=== PATIENT | female | born 1950 | race Caucasian/White ===

== ENCOUNTER 2016-11-26 11:12 | Inpatient (IN) | payer MEDICARE, BC ==
[~2016-11-26] VITALS: Ht 170.2 cm; Wt 85.0 kg
[2016-11-26] VITALS (9 sets, daily range): BP systolic 123–192; BP diastolic 59–93; PULSE 58–89; RESP 12–22; TEMP 97.7–98; O2SAT 95–98
[2016-11-26] MEDS ORDERED: DICL1CAP4 PO (11:45)
[2016-11-26] MEDS ORDERED: GABA300C5 PO (11:45)
[2016-11-26] MEDS ORDERED: LEVO112T2 PO (11:45)
[2016-11-26] MEDS ORDERED: LEVE500 PO (11:45)
[2016-11-26] MEDS ORDERED: LORazepam 2 MG/ML VIAL IV PUSH ONE (12:00)
[2016-11-26] MEDS ORDERED: SODIUM CHLORIDE 0.9% FLUSH 5 ML FLUSH IVF PRN (12:00)
[2016-11-26] MEDS ORDERED: SODIUM CHLOR 0.9% 1000 ML INJ 1,000 ML IV ONE (12:00)
[2016-11-26 12:13] LABS: AUTOMATED NEUTROPHIL # 3.2 TH/MM3 (1.8-7.7); BASOPHIL % 0.6 % (0.0-2.0); EOSINOPHIL # 0.1 TH/MM3 (0-0.4); EOSINOPHIL % 1.6 % (0.0-4.0); HEMATOCRIT 42.1 % (35.0-46.0); HEMO FLAGS DIFF FINAL; LYMPH % 32.3 % (9.0-44.0); LYMPHOCYTE # 1.8 TH/MM3 (1.0-4.8); MEAN CELL VOLUME 89.1 FL (80.0-100.0); MEAN CORPUSCULAR HEMOGLOBIN 30.7 PG (27.0-34.0); MEAN CORPUSCULAR HGB CONC 34.5 % (32.0-36.0); MONO % 7.9 % (0.0-8.0); NEUT % 57.6 % (16.0-70.0); PLATELET COUNT 245 TH/MM3 (150-450); RED BLOOD COUNT 4.73 MIL/MM3 (4.00-5.30); RED CELL DISTRIBUTION WIDTH 13.2 % (11.6-17.2); WHITE BLOOD COUNT 5.5 TH/MM3 (4.0-11.0)
--- NOTE | 2016-11-26 12:17 | PD ---
HPI Chief Complaint: Numbness/Tingling Time Seen by Provider: 11:41 Travel History International Travel<30 days: No Contact w/Intl Traveler<30days: No Traveled to known affect area: No History of Present Illness HPI Patient is a 66-year-old female who presents to emergency room with her with complaints of altered mental status with left-sided weakness and aphasia. reports that 2.5 hours prior to coming to the emergency room for evaluation, patient had an episode of aphasia with drooling and left-sided weakness with severe pains to her left hand. Reports that symptoms lasted for about 2 and half hours and resolved when she arrived emergency room. Reports that symptoms were similar to the past where she was diagnosed with seizure episode in 2014. Patient reports that the last time this happened in 2014, sat that she was having a stroke, reports that the EEG showed that she was having seizure activity. She reports that she has been taking Keppra ever since her diagnosis and does take A 300 mg twice a day. Patient reports that she does follow-up with Dr. Raad Ng (neurologist) in the office and did have an EEG on 07/2816 which showed an abnormal EEG. EEG on August 08, 2016 showed evidence of possible cortical irritability seen bilaterally but in an independent fashion suggesting multiple areas that could represent an epileptic foci. Continuation of antiepileptics are likely recommended based on this pattern. Patient reports that she has resolution of her aphasia and drooling and weakness at this time, Reports that her left hand still feels tight and contracted at this time. PFSH Past Medical History Arthritis: Yes Hypertension: Yes Seizures: Yes ?: Not Past Surgical History Other Surgery: Yes (THYROIDECTOMY;HEMORROIDECTOMY) Social History Alcohol Use: Yes (occ) Tobacco Use: No Substance Use: No Allergies-Medications (Allergen,Severity, Reaction): Coded Allergies: No Known Allergies (Unverified , 11/26/16) Reported Meds & Prescriptions Reported Meds & Active Scripts Active Reported Zorvolex (Diclofenac) 35 Mg Cap 35 Mg PO TID Keppra (Levetiracetam) 500 Mg Tab 300 Mg PO BID Gabapentin 300 Mg Cap 300 Mg PO TID Levothyroxine (Levothyroxine Sodium) 112 Mcg Tab 112 Mcg PO DAILY Review of Systems General / Constitutional: No: Fever Eyes: No: Visual changes HENT: No: Headaches Cardiovascular: No: Chest Pain or Discomfort Respiratory: No: Shortness of Breath Gastrointestinal: No: Abdominal Pain Genitourinary: No: Dysuria Musculoskeletal: No: Pain Skin: No Rash Neurologic: Positive: Weakness, Slurred Speech, Paresthesia, Seizures Psychiatric: No: Depression Endocrine: No: Polydipsia Hematologic/Lymphatic: No: Easy Bruising Physical Exam Narrative GENERAL: mild distress SKIN: Warm and dry. HEAD: Atraumatic. Normocephalic. EYES: Pupils equal and round. No scleral icterus. No injection or drainage. ENT: No nasal bleeding or discharge. Mucous membranes pink and moist. NECK: Trachea midline. No JVD. CARDIOVASCULAR: Regular rate and rhythm. No murmur appreciated. RESPIRATORY: No accessory muscle use. Clear to auscultation. Breath sounds equal bilaterally. GASTROINTESTINAL: Abdomen soft, non-tender, nondistended. Hepatic and splenic margins not palpable. MUSCULOSKELETAL: No obvious deformities. No clubbing. No cyanosis. No edema. NEUROLOGICAL: Awake and alert. Patient with increased weakness to left arm/left leg. NIH Scale 2 PSYCHIATRIC: Appropriate mood and affect; insight and judgment normal. Data Data Last Documented VS Vital Signs Date Time Temp Pulse Resp B/P Pulse Ox O2 Delivery O2 Flow Rate FiO2 11/26/16 13:00 58 16 153/67 95 Room Air 11/26/16 11:15 98.0 Orders Electrocardiogram (11/26/16 11:53) Prothrombin Time / Inr (Pt) (11/26/16 11:53) Act Partial Throm Time (Ptt) (11/26/16 11:53) Complete Blood Count With Diff (11/26/16 11:53) Comprehensive Metabolic Panel (11/26/16 11:53) Creatine Kinase (Cpk) (11/26/16 11:53) Troponin I (11/26/16 11:53) Urinalysis - C+S If Indicated (11/26/16 11:53) Ct Brain W/O Iv Contrast(Rout) (11/26/16 11:53) Chest, Single Ap (11/26/16 11:53) Ecg Monitoring (11/26/16 11:53) Iv Access Insert/Monitor (11/26/16 11:53) Oximetry (11/26/16 11:53) Blood Glucose (11/26/16 11:53) Sodium Chloride 0.9% Flush (Ns Flush) (11/26/16 12:00) Lorazepam Inj (Ativan Inj) (11/26/16 12:00) Sodium Chlor 0.9% 1000 Ml Inj (Ns 1000 M (11/26/16 12:00) Aspirin (Aspirin) (11/26/16 13:45) Urine Culture (11/26/16 13:19) Admit Order (Ed Use Only) (11/26/16 13:46) Labs Laboratory Tests Test 11/26/16 11/26/16 11:59 13:19 White Blood Count 5.5 TH/MM3 Red Blood Count 4.73 MIL/MM3 Hemoglobin 14.5 GM/DL Hematocrit 42.1 % Mean Corpuscular Volume 89.1 FL Mean Corpuscular Hemoglobin 30.7 PG Mean Corpuscular Hemoglobin 34.5 % Concent Red Cell Distribution Width 13.2 % Platelet Count 245 TH/MM3 Mean Platelet Volume 8.1 FL Neutrophils (%) (Auto) 57.6 % Lymphocytes (%) (Auto) 32.3 % Monocytes (%) (Auto) 7.9 % Eosinophils (%) (Auto) 1.6 % Basophils (%) (Auto) 0.6 % Neutrophils # (Auto) 3.2 TH/MM3 Lymphocytes # (Auto) 1.8 TH/MM3 Monocytes # (Auto) 0.4 TH/MM3 Eosinophils # (Auto) 0.1 TH/MM3 Basophils # (Auto) 0.0 TH/MM3 CBC Comment DIFF FINAL Differential Comment Prothrombin Time 10.6 SEC Prothromb Time International 1.0 RATIO Ratio Activated Partial 34.9 SEC Thromboplast Time Sodium Level 139 MEQ/L Potassium Level 4.1 MEQ/L Chloride Level 102 MEQ/L Carbon Dioxide Level 30.9 MEQ/L Anion Gap 6 MEQ/L Blood Urea Nitrogen 11 MG/DL Creatinine 0.96 MG/DL Estimat Glomerular Filtration 58 ML/MIN Rate Random Glucose 86 MG/DL Calcium Level 9.1 MG/DL Total Bilirubin 0.6 MG/DL Aspartate Amino Transf 19 U/L (AST/SGOT) Alanine Aminotransferase 25 U/L (ALT/SGPT) Alkaline Phosphatase 98 U/L Total Creatine Kinase 68 U/L Troponin I LESS THAN 0.02 NG/ML Total Protein 7.6 GM/DL Albumin 4.1 GM/DL Urine Color LIGHT-YELLOW Urine Turbidity CLEAR Urine pH 8.0 Urine Specific [place] 1.005 Urine Protein NEG mg/dL Urine Glucose (UA) NEG mg/dL Urine Ketones NEG mg/dL Urine Occult Blood NEG Urine Nitrite NEG Urine Bilirubin NEG Urine Urobilinogen LESS THAN 2.0 MG/DL Urine Leukocyte Esterase LARGE Urine RBC 2 /hpf Urine WBC 9 /hpf Urine Squamous Epithelial <1 /hpf Cells Urine Transitional Epithelial <1 /hpf Cells Urine Bacteria RARE /hpf Microscopic Urinalysis Comment CATH-CULTURE IND MDM Medical Decision Making Medical Screen Exam Complete: Yes Emergency Medical Condition: Yes Interpretation(s) EKG at 1242: Sinus bradycardia at 58 beats for minute, QT/QTc 419/416, no acute ST or T-wave changes Vital Signs Date Time Temp Pulse Resp B/P Pulse Ox O2 Delivery O2 Flow Rate FiO2 11/26/16 11:56 16 98 Room Air 11/26/16 11:46 73 18 167/75 95 Room Air 11/26/16 11:15 98.0 81 12 192/93 98 Room Air Differential Diagnosis CVA, seizure, electrolyte abnormality, arrhythmia, intracranial hemorrhage Narrative Course Patient is a 66-year-old female who presents to emergency room with complaints of episode of aphasia, drooling and left-sided weakness. Patient's reports that symptoms lasted for 2 and half hours and resolved upon arrival to the emergency room. Patient was placed on a director cardiac, EKG ordered, labs as well as CT of head ordered for further evaluation symptoms. During clinical evaluation of patient, patient began to have contractions of her left hand and increased pain - reports that symptoms are similar to when she has had a seizure in the past. IV dose of Ativan ordered for patient. Symptoms concerning for TIA (given resolution of symptoms at this time) vs Seizure as pt reports that she had similar symptoms in the past. CT head ordered - will perform serial neurologic evaluations All labs and all studies reviewed with patient in detail. Patient with complete resolutions at this time. We'll give patient a full dose aspirin. Will place in obs for TIA versus seizure CBC & BMP Diagram 11/26/16 11:[address] 11/26/16 1153 Signed Impressions: Service Date/Time: Saturday, November 26, 2016 12:28 - CONCLUSION: Negative for an acute process. Los Shen MD FACR Chest X-Ray 11/26/16 1153 Signed Impressions: Service Date/Time: Saturday, November 26, 2016 11:52 - CONCLUSION: No acute disease. Los Shen MD FACR Case reviewed with Dr Campbell who accepts pt to service for obs Diagnosis Primary Impression: TIA (transient ischemic attack) Qualified Code: G45.9 - Transient cerebral ischemia, unspecified type Admitting Information Admitting Physician Requests: Observation Radha Mcguire DO Nov 26, 2016 12:17
[2016-11-26 12:22] LABS: APTT (PATIENT) 34.9 SEC (24.3-30.1); PROTHROMBIN TIME - PATIENT 10.6 SEC (9.8-11.6)
--- NOTE | 2016-11-26 12:50 | RADRPT ---
EXAM DATE/TIME: 11/26/2016 12:28 [facility] COMPARISON: No previous studies available for comparison. INDICATIONS : Left upper extremity numbness since last night RADIATION DOSE: 38.06 CTDIvol (mGy) MEDICAL HISTORY : Hypertension. Seizures. SURGICAL HISTORY : None. ENCOUNTER: Initial ACUITY: 1 day PAIN SCALE: 6/10 LOCATION: Left upper extremity TECHNIQUE: Multiple contiguous axial images were obtained of the head. Using automated exposure control and adjustment of the mA and/or kV according to patient size, radiation dose was kept as low as reasonably achievable to obtain optimal diagnostic quality images. FINDINGS: CEREBRUM: The ventricles are normal for age. No evidence of midline shift, mass lesion, hemorrha ge or acute infarction. No extra-axial fluid collections are seen. POSTERIOR FOSSA: The cerebellum and brainstem are intact. The 4th ventricle is midline. The cer ebellopontine angle is unremarkable. EXTRACRANIAL: The visualized portion of the orbits is intact. SKULL: The calvaria is intact. No evidence of skull fracture. CONCLUSION: Negative for an acute process. Los Shen MD FACR on November 26, 2016 at 12:48 Board Certified Radiologist. This report was verified electronically.
--- NOTE | 2016-11-26 12:56 | RADRPT ---
EXAM DATE/TIME: 11/26/2016 11:52 [facility] COMPARISON: No previous studies available for comparison. INDICATIONS : Short of breath with weakness on left side. MEDICAL HISTORY : None. SURGICAL HISTORY : None. ENCOUNTER: Initial ACUITY: 1 day PAIN SCORE: 10/28 LOCATION: Bilateral chest FINDINGS: A single view of the chest demonstrates the lungs to be symmetrically aerated without evidence of mas s, infiltrate or effusion. The cardiomediastinal contours are unremarkable. Osseous structures are intact. CONCLUSION: No acute disease. Los Shen MD FACR on November 26, 2016 at 12:54 Board Certified Radiologist. This report was verified electronically.
[2016-11-26 13:01] LABS: ALKALINE PHOSPHATASE 98 U/L (45-117); ALT (GPT) 25 U/L (10-53); ANION GAP 6 MEQ/L (5-15); AST (GOT) 19 U/L (15-37); BICARBONATE 30.9 MEQ/L (21.0-32.0); BLOOD UREA NITROGEN 11 MG/DL (7-18); CHLORIDE 102 MEQ/L (98-107); CREATINE KINASE 68 U/L (26-192); GLOMERULAR FILTRATION RATE 58 ML/MIN (>89); POTASSIUM 4.1 MEQ/L (3.5-5.1); SODIUM (NA) 139 MEQ/L (136-145); TOTAL BILIRUBIN ADULT 0.6 MG/DL (0.2-1.0)
[2016-11-26 13:36] LABS: BACTERIA, URINE RARE /hpf; BLOOD, URINE NEG (NEG); GLUCOSE,URINE NEG (NEG); KETONE, URINE NEG (NEG); NITRITE,URINE NEG (NEG); SQUAMOUS EPITHELIAL CELL URINE <1 /hpf (0-5); TRANSITIONAL EPI CELLS, URINE <1 /hpf; URINE COLOR LIGHT-YELLOW (YELLW/STRAW)
[2016-11-26 13:37] LABS: COMMENT (UR) CATH-CULTURE IND; CULTURE IF INDICATED CATH CULTURE IND
[2016-11-26] MEDS ORDERED: ASPIRIN 325 MG TAB PO ONE (13:45)
[2016-11-26] MEDS ORDERED: ONDANSETRON HCL 4 MG/2 ML VIAL IVP PRN (14:00)
[2016-11-26] MEDS ORDERED: ACETAMINOPHEN 325 MG TAB PO PRN (14:00)
[2016-11-26] MEDS ORDERED: GLUCAGON 1 MG/ML VIAL OTHER PRN (14:00)
[2016-11-26] MEDS ORDERED: PROCHLORPERAZINE 25 MG SUPP PR PRN (14:00)
[2016-11-26] MEDS ORDERED: DEXTROSE 50% IN WATER 50 ML VIAL(D50) IV PUSH PRN (14:00)
[2016-11-26] MEDS ORDERED: SODIUM CHLORIDE 0.9% FLUSH 5 ML FLUSH FLUSH PRN (14:00)
[2016-11-26] MEDS ORDERED: SENNOSIDES 8.6 MG TAB PO PRN (14:00)
[2016-11-26] MEDS ORDERED: BISACODYL 10 MG SUPP PR PRN (14:00)
[2016-11-26] MEDS: SODIUM CHLOR 0.9% 1000 ML INJ 1,000 ML IV SCH ×2 (15:18→23:46)
[2016-11-26] MEDS: cefTRIAXone INJ 1,000 MG in SODIUM CHLORIDE 0.9% INJ 100 ML IV SCH (15:18)
[2016-11-26] MEDS: ENOXAPARIN SODIUM 40 MG/0.4 ML SYRINGE SQ SCH (15:18)
[2016-11-26] MEDS: INSULIN ASPART SUPPLEMENTAL SCALE SQ SCH ×2 (16:00→20:30)
--- NOTE | 2016-11-26 16:34 | RADRPT ---
EXAM DATE/TIME: 11/26/2016 15:22 [facility] COMPARISON: No previous studies available for comparison. INDICATIONS : Cerebrovascular accident. MEDICAL HISTORY : Hypertension. Arthritis. Seizures. SURGICAL HISTORY : Thyroidectomy. Hemorrhoidectomy. Bilateral knee replacement. Right hip replacement. ENCOUNTER: Initial ACUITY: 1 day PAIN SCORE: 0/10 LOCATION: Bilateral neck PEAK SYSTOLIC VELOCITIES (cm/sec): ICA/CCA RATIO: Right: 1.4 Left: 1.4 ICA: Right: 98 Left: 114 CCA: Right: 71 Left: 80 ECA: Right: 129 Left: 114 VERTEBRAL: Right: 53 antegrade Left: 74 antegrade Elevated flow velocities and ICA/CCA ratios have been found to correlate with increased degrees of vessel stenosis, calculated as percentage of diameter relative to a normal segment of distal ICA/CCA FINDINGS: RIGHT CAROTID: No significant stenosis is visualized. The waveforms are within normal limits. LEFT CAROTID: No significant stenosis is visualized. The waveforms are within normal limits. Minimal noncalcified atherosclerotic plaque is noted within the left carotid bulb. VERTEBRAL ARTERIES: Antegrade flow is seen in both vertebral arteries. MISCELLANEOUS: None. CONCLUSION: No hemodynamically significant stenosis. Conrado Hernandez MD on November 26, 2016 at 16:32 Board Certified Radiologist. This report was verified electronically.
--- NOTE | 2016-11-26 17:05 | HHI.HP ---
[facility] Service [facility] Primary Care Physician Non-Staff Admission Diagnosis TIA vs Seizure Diagnoses: Chief Complaint: left sided weakness, aphasia Travel History International Travel<30 Days: No Contact w/Intl Traveler <30 Da: No Traveled to Known Affected Are: No History of Present Illness 66-year-old female with history of seizure, hypothyroidism, arthritis, presents with acute onset of left sided weakness and aphasia. The patient's is at bedside who assists with the history. He states 2.5hrs prior to coming to the hospital, the patient had an episode of aphasia, with some drooling, and diffuse left upper and lower extremity weakness. The patient was very tearful during the episode because of the intense pain. The patient reports recently her left hand has been having episodes of spasms, however today it was much more severe and included the left lower extremity which she described as "turning inward". She states this lasted over 2 hours and was very painful. By the time they arrived to the ER, most of the symptoms resolved however still with left hand and leg spasms and associated weakness. She also reports a diffuse frontal headache that didn't start until she arrived to the ER which she believes is related to all the crying. She denies any changes in vision. She does report recent unsteady gait, poor balance, and is constantly running into things while she's walking. The patient reports she had a similar episode in 2014 with left arm/leg weakness, went to the hospital because she thought she was having a stroke however there was no evidence of stroke, EEG was abnormal, and she has been on Keppra 300mg bid ever since. Follows with neurologist Dr. Raad Ng. Recent EEG showed "evidence of possible cortical irritability seen bilaterally but in an independent fashion suggesting multiple areas that could represent an epileptic foci". Currently the patient is seen in the ER, aphasia resolved, however patient still with contracture of LUE and diffuse left sided weakness. UA positive for UTI, the patient does report recent increased urinary frequency/incontinence, occasional dysuria, denies fevers/chills or abdominal pain/nausea/vomiting. Review of Systems Constitutional: DENIES: Diaphoretic episodes, Fever, Chills, Dizziness, Change in appetite Endocrine: DENIES: Polydipsia, Polyuria, Polyphagia Eyes: DENIES: Blurred vision, Vision loss, Double Vision Ears, nose, mouth, throat: DENIES: Throat pain, Running Nose, Odynophagia Respiratory: DENIES: Cough, Wheezing, Shortness of breath Cardiovascular: DENIES: Chest pain, Palpitations, Syncope, Lower Extremity Edema Gastrointestinal: DENIES: Abdominal pain, Constipation, Diarrhea, Nausea, Vomiting Genitourinary: COMPLAINS OF: Urinary frequency, Urinary incontinence, Dysuria Musculoskeletal: COMPLAINS OF: Muscle aches, DENIES: Joint pain, Back pain, Neck pain Integumentary: DENIES: Abnormal pigmentation, Pruritus, Rash Hematologic/lymphatic: DENIES: Bruising, Lymphadenopathy Immunologic/allergic: DENIES: Eczema, Urticaria Neurologic: COMPLAINS OF: Abnormal gait, Headache, Localized weakness, Seizures , Speech Problems, Poor Balance, DENIES: Paresthesias, Tremor Psychiatric: DENIES: Anxiety, Depression Past Family Social History Past Medical History seizure 2015 arthritis hypotension hypothyroidism Past Surgical History thyroidectomy hemorrhoidectomy bilateral total knee arthroplasties right total hip arthroplasty Reported Medications levothyroxine 112mcg daily Keppra 300mg po bid Allergies: Coded Allergies: No Known Allergies (Unverified , 11/26/16) Active Ordered Medications Current Medications Medications (Trade) Dose Ordered Sig/Eneida Route Start Time Stop Time Status Last Admin (NS 1000 ml Inj) 1,000 ml @ 100 mls/hr Q10H IV 11/26/16 13:46 11/26/16 15:18 (NS Flush) 2 ml UNSCH PRN FLUSH 11/26/16 14:00 (NS Flush) 2 ml BID FLUSH 11/26/16 21:00 (Tylenol) 650 mg Q4H PRN PO 11/26/16 14:00 (Zofran Inj) 4 mg Q6H PRN IVP 11/26/16 14:00 (Compazine Supp) [address] 11/26/16 14:00 (Dulcolax Supp) [address] 11/26/16 14:00 (Senokot) 17.2 mg Q12H PRN PO 11/26/16 14:00 (Lovenox Inj) 40 mg Q24H SQ 11/26/16 14:00 11/26/16 15:18 (Neurontin) 300 mg TID PO 11/26/16 18:00 (Keppra) 500 mg BID PO 11/26/16 21:00 (Synthroid) 112 mcg DAILY@06 PO 11/27/16 06:00 Non-Formulary Medication 35 mg TID PO 11/26/16 18:00 Future Hold (Aspirin Chew) 81 mg DAILY PO 11/27/16 09:00 (Lipitor) 10 mg HS PO 11/26/16 21:00 (D50w (Vial) Inj) 25 ml UNSCH PRN IV PUSH 11/26/16 14:00 Glucagon 1 mg 1 mg UNSCH PRN OTHER 11/26/16 14:00 (Rocephin Inj/NS Inj) 100 ml @ 200 mls/hr Q24H IV 11/26/16 14:00 11/26/16 15:18 Family History Mother with intracranial hemorrhage/CVA age ~83, carotid stenosis, still alive at age 89 Father in his 30s from accident, however did have heart disease Brother with a seizure x1 in the past Social History Smoked tobacco for 15+years, 1.5 PPD, quit in 1982 Denies illicit drug use Drinks 1 jesse occasionally Physical Exam Vital Signs Vital Signs Date Time Temp Pulse Resp B/P Pulse Ox O2 Delivery O2 Flow Rate FiO2 11/26/16 14:25 96 21 11/26/16 14:00 58 18 139/65 95 Room Air 11/26/16 13:00 58 16 153/67 95 Room Air 11/26/16 12:30 62 22 152/65 95 Room Air 11/26/16 11:56 16 98 Room Air 11/26/16 11:46 73 18 167/75 95 Room Air 11/26/16 11:15 98.0 81 12 192/93 98 Room Air Physical Exam GENERAL: Well-developed, well-nourished female in NAD. SKIN: Warm and dry. HEAD: Atraumatic. Normocephalic. EYES: Pupils equal and round. No scleral icterus. No injection or drainage. ENT: No nasal bleeding or discharge. Mucous membranes pink and moist. NECK: Trachea midline. CARDIOVASCULAR: Regular rate and rhythm. No murmur appreciated. RESPIRATORY: No accessory muscle use. Clear to auscultation. Breath sounds equal bilaterally. GASTROINTESTINAL: Abdomen soft, non-tender, nondistended. Normoactive bowel sounds. MUSCULOSKELETAL: Extremities without clubbing, cyanosis, or edema. No obvious deformities. NEUROLOGICAL: Awake and alert. No obvious cranial nerve deficits. Left hand contracture with 4/5 executive secretary social welfare strength, 4/5 strength of LLE, 5/5 strength of RUE, RLE. Bilateral upper and lower extremity sensation equal and intact. Normal speech. No facial droop/lid lag/tongue deviation. PSYCHIATRIC: Appropriate mood and affect; insight and judgment normal. Laboratory Laboratory Tests Test 11/26/16 11/26/16 11/26/16 11:59 13:19 14:48 White Blood Count 5.5 Red Blood Count 4.73 Hemoglobin 14.5 Hematocrit 42.1 Mean Corpuscular Volume 89.1 Mean Corpuscular Hemoglobin 30.7 Mean Corpuscular Hemoglobin 34.5 Concent Red Cell Distribution Width 13.2 Platelet Count 245 Mean Platelet Volume 8.1 Neutrophils (%) (Auto) 57.6 Lymphocytes (%) (Auto) 32.3 Monocytes (%) (Auto) 7.9 Eosinophils (%) (Auto) 1.6 Basophils (%) (Auto) 0.6 Neutrophils # (Auto) 3.2 Lymphocytes # (Auto) 1.8 Monocytes # (Auto) 0.4 Eosinophils # (Auto) 0.1 Basophils # (Auto) 0.0 CBC Comment DIFF FINAL Differential Comment Prothrombin Time 10.6 Prothromb Time International 1.0 Ratio Activated Partial 34.9 Thromboplast Time Sodium Level 139 Potassium Level 4.1 Chloride Level 102 Carbon Dioxide Level 30.9 Anion Gap 6 Blood Urea Nitrogen 11 Creatinine 0.96 Estimat Glomerular Filtration 58 Rate Random Glucose 86 Calcium Level 9.1 Total Bilirubin 0.6 Aspartate Amino Transf 19 (AST/SGOT) Alanine Aminotransferase 25 (ALT/SGPT) Alkaline Phosphatase 98 Total Creatine Kinase 68 Troponin I LESS THAN 0.02 LESS THAN 0.02 Total Protein 7.6 Albumin 4.1 Urine Color LIGHT-YELLOW Urine Turbidity CLEAR Urine pH 8.0 Urine Specific Max 1.005 Urine Protein NEG Urine Glucose (UA) NEG Urine Ketones NEG Urine Occult Blood NEG Urine Nitrite NEG Urine Bilirubin NEG Urine Urobilinogen LESS THAN 2.0 Urine Leukocyte Esterase LARGE Urine RBC 2 Urine WBC 9 Urine Squamous Epithelial <1 Cells Urine Transitional Epithelial <1 Cells Urine Bacteria RARE Microscopic Urinalysis Comment CATH-CULTURE IND 25-Hydroxy Vitamin D Total 27.3 Date/Time Procedure Status Source Growth 11/26/16 13:19 Urine Culture Received Urine Catheterized Urine Pending Result Diagram: 11/26/16 1159 11/26/16 1159 Imaging Last Impressions Head CT 11/26/16 1153 Signed Impressions: Service Date/Time: Saturday, November 26, 2016 12:28 - CONCLUSION: Negative for an acute process. Los Shen MD FACR Chest X-Ray 11/26/16 1153 Signed Impressions: Service Date/Time: Saturday, November 26, 2016 11:52 - CONCLUSION: No acute disease. Los Shen MD FACR Carotid Artery Ultrasound 11/26/16 0000 Signed Impressions: Service Date/Time: Saturday, November 26, 2016 15:22 - CONCLUSION: No hemodynamically significant stenosis. Conrado Hernandez MD Assessment and Plan Assessment and Plan 66-year-old female with history of seizure, hypothyroidism, arthritis, presents with acute onset of left sided weakness and aphasia. Acute Left Sided Weakness & Aphasia: suspect TIA/CVA, possible seizure. Head CT images reviewed, unremarkable. CBC, BMP, TSH wnl. UA with possible UTI, see below. NIHSS, neuro checks, monitor on telemetry. PT/OT/ST. Check brain MRI, carotid U/S, holter monitor, EEG. Check lipid profile, HgbA1c, Vit B12, Vit D. Start aspirin 81mg. Give IVF. Consult Neurology. Seizure: patient with hx of seizure in 2014, Follows with neurologist Dr. Raad Ng. Recent EEG showed "evidence of possible cortical irritability seen bilaterally but in an independent fashion suggesting multiple areas that could represent an epileptic foci". Now on Keppra 300mg bid ( question actual dose), with possible seizure as above, increased Keppra to 500mg bid. Neuro consult as above. UTI: UA with large leuks, patient with recent increased urinary frequency/ incontinence, occasional dysuria. Start on IV Rocephin. Monitor urine culture. Hypothyroidism: chronic, TSH wnl, continue patient's levothyroxine. DVT Prophylaxis: teds/SCDs, Lovenox Written by Eve Fishman, acting as scribe for Dr. Campbell on 11/26/16 at 16:51. The documentation accurately reflects the work performed [id number] by me Dr. Campbell on 11/26/16 at 16:51. Code Status Full Code Discussed Condition With Patient, Patient's at bedside, IMAGING TECHNICIAN, ER Eve Garcia PA-C Nov 26, 2016 17:05 Ivy Campbell MD Nov 26, 2016 19:27
--- NOTE | 2016-11-26 17:55 | EKG ---
Date Performed: 11/26/2016 Time Performed: 12:42:03 PTAGE: 66 years EKG: SINUS BRADYCARDIA WITH SINUS ARRHYTHMIA MODERATE ST DEPRESSION ABNORMAL ECG NO PREVIOUS TRACING DOCTOR: Chapo Herrera Interpretating Date/Time 11/26/2016 17:54:31
[2016-11-26] MEDS ORDERED: DICLOFENAC 35 MG PO SCH (18:00)
[2016-11-26] MEDS ORDERED: levETIRAcetam 1000 MG INJ 100 ML IV ONE (18:15)
[2016-11-26] MEDS ORDERED: GADODIAMIDE PF 287 MG/ML 20 ML VIAL (for RAD MRI) IV ONE (19:20)
[2016-11-26] MEDS: SODIUM CHLORIDE 0.9% FLUSH 5 ML FLUSH FLUSH SCH (20:20)
[2016-11-26] MEDS: ATORVASTATIN 10 MG TAB PO SCH (20:20)
[2016-11-26] MEDS: GABAPENTIN 300 MG CAP PO SCH ×2 (20:21→20:30)
--- NOTE | 2016-11-26 20:43 | RADRPT ---
EXAM DATE/TIME: 11/26/2016 19:03 [facility] COMPARISON: No previous studies available for comparison. INDICATIONS : CVA. Left sided numbness. CONTRAST: 17 cc Omniscan (gadodiamide) IV MEDICAL HISTORY : Seizures. SURGICAL HISTORY : Total knee replacement, left. Total knee replacement, right. Total hip, right. ENCOUNTER: Subsequent ACUITY: 1 day PAIN SCORE: 0/10 LOCATION: head. TECHNIQUE: Multiplanar, multisequence MRI of the brain was performed both prior to and following the administrat ion of paramagnetic contrast. FINDINGS: CEREBRUM: The ventricles are normal for age. No evidence of midline shift, mass lesion, hemorrhage or acute in farction. No extraaxial fluid collections are seen. The pituitary gland and suprasellar cistern are normal in configuration. WHITE MATTER: No significant signal abnormalities are seen in the white matter. POSTERIOR FOSSA: The cerebellum and brainstem are intact. The 4th ventricle is midline. The cerebellopontine angle is unremarkable. The cerebellar tonsils are normal in position. DIFFUSION IMAGING: No focal areas of restricted diffusion are seen. No evidence of acute infarction. EXTRACRANIAL: The visualized portions of the orbits and paranasal sinuses are unremarkable. POST-CONTRAST: No abnormal areas of parenchymal or dural enhancement. No evidence of blood-brain barrier breakdown. CONCLUSION: Normal examination for a patient of this age. Raad Mena MD on November 26, 2016 at 20:38 Board Certified Radiologist. This report was verified electronically.
--- NOTE | 2016-11-26 20:58 | MB ---
cc: WILLIAN MIXON M.D. DATE OF CONSULTATION: 11/26/2016 REASON FOR CONSULTATION: HISTORY OF PRESENT ILLNESS: The patient is a 66 year-old woman seen in neurological consultation. She comes in worried about seizures. In August of 2015 she had some symptoms, perhaps with a somewhat similar presentation and ended up having at least three major seizures. She was started on Keppra and she followed with her neurologist in [place]. She comes here as a snow bird. She developed symptoms earlier today, characterized by some drawing of the left side of her arm, just feeling uncomfortable and felt she had some numbness or tingling on the left arm and leg. She has had some symptoms recently though not as severe. The notes reported in the H&P about some difficulty with her speech. This was not discussed with me by the patient or . Her evaluation included UA findings for UTI. She has a history of low thyroid and hypotension, on Keppra. The patient states it is 300 milligrams twice a day which does not make sense to me as I am not aware that Keppra comes in this strength. She is on levothyroxine. The neurological exam showed normal mentation. It appears that she has not been speaking well and the agreed. She is a bit slow to express herself. There is minimal left facial flattening of questionable significance. She does have left arm weakness which is mild and she admits that intermittently there is some drawing and I see a little bit of spasming on the left upper extremity, with perhaps some turning, rotating inwards. No clonic activity. The left leg, possibly very mildly weak when compared to the right on the bedside exam. Reflexes hypoactive, present at the elbows, knees and trace at the ankles and plantar responses were flexor. ASSESSMENT: History of seizures on Keppra. The exact dose is not quite certain. See above comments. Today's symptoms, left-sided, could be a focal seizure and also could be from a cerebrovascular nature. She has been symptomatic for several hours. Her symptoms started hours before she came to the emergency room. She was seen in the ER just after noon time by the treating physician. I am going to give her one dose of Keppra 1 gram intravenous now. She is to be scheduled for an MRI of the brain, EEG. The CT brain and carotid ultrasound were unremarkable. I will follow the neurological course. Discussed with the patient and . Thank you for asking us to assist in her care. Willian Mxion MD [facility]/[place] /6:19 PM /8:04 PM
[2016-11-26] MEDS: levETIRAcetam 500 MG TAB PO SCH (22:06)
[2016-11-27] VITALS (8 sets, daily range): BP systolic 93–139; BP diastolic 54–72; PULSE 54–74; RESP 18–21; TEMP 95.4–98.3; O2SAT 96–98
[2016-11-27] MEDS: LEVOTHYROXINE SODIUM 112 MCG TAB PO SCH (05:40)
[2016-11-27] MEDS: INSULIN ASPART SUPPLEMENTAL SCALE SQ SCH ×4 (05:42→21:00)
[2016-11-27 07:35] LABS: AUTOMATED NEUTROPHIL # 1.8 TH/MM3 (1.8-7.7); EOSINOPHIL # 0.1 TH/MM3 (0-0.4); EOSINOPHIL % 2.3 % (0.0-4.0); HEMATOCRIT 36.5 % (35.0-46.0); HEMO FLAGS DIFF FINAL; LYMPHOCYTE # 1.7 TH/MM3 (1.0-4.8); MEAN CELL VOLUME 88.7 FL (80.0-100.0); MEAN CORPUSCULAR HEMOGLOBIN 31.2 PG (27.0-34.0); MEAN CORPUSCULAR HGB CONC 35.1 % (32.0-36.0); MONO % 8.2 % (0.0-8.0); NEUT % 46.5 % (16.0-70.0); PLATELET COUNT 213 TH/MM3 (150-450); RED BLOOD COUNT 4.12 MIL/MM3 (4.00-5.30); RED CELL DISTRIBUTION WIDTH 13.2 % (11.6-17.2)
[2016-11-27 08:08] LABS: BICARBONATE 26.9 MEQ/L (21.0-32.0); POTASSIUM 3.9 MEQ/L (3.5-5.1)
[2016-11-27 08:10] LABS: HDL CHOLESTEROL 56.4 MG/DL (40.0-60.0)
[2016-11-27] MEDS ORDERED: INFLUENZA VIRUS VACCINE (QUADRIVALENT) 0.5 ML SYR IM ONE (09:00)
[2016-11-27] MEDS: ASPIRIN 81 MG CHEW TAB PO SCH (09:00)
[2016-11-27] MEDS ORDERED: PNEUMOCOCCAL POLYVALENT INJ 25 MCG/0.5 ML SYR IM ONE (09:00)
[2016-11-27] MEDS: SODIUM CHLOR 0.9% 1000 ML INJ 1,000 ML IV SCH ×2 (09:46→20:43)
[2016-11-27] MEDS: GABAPENTIN 300 MG CAP PO SCH ×3 (10:05→19:19)
[2016-11-27] MEDS: levETIRAcetam 500 MG TAB PO SCH ×2 (10:05→20:43)
[2016-11-27] MEDS: SODIUM CHLORIDE 0.9% FLUSH 5 ML FLUSH FLUSH SCH ×2 (10:08→20:47)
[2016-11-27] MEDS ORDERED: PILL SPLITTER OTHER PRN (13:15)
[2016-11-27] MEDS ORDERED: CYCLOBENZAPRINE HCL 10 MG TAB PO PRN (13:15)
[2016-11-27] MEDS: LORazepam 0.5 MG TAB PO PRN (13:15)
--- NOTE | 2016-11-27 13:53 | HHI.PR ---
Subjective Remarks Patient in bed. Had another episode of muscle spasm on the left hand. Says she doesn't know when these come. No change in speech or new motor deficit. Fels weakness on her left side. No fever or chills. Objective Vitals Vital Signs Date Time Temp Pulse Resp B/P Pulse Ox O2 Delivery O2 Flow Rate FiO2 11/27/16 12:00 96.9 65 20 139/72 98 11/27/16 08:00 95.4 64 20 139/70 96 11/27/16 04:32 98.3 54 18 93/54 97 11/27/16 00:00 97.4 69 21 122/68 98 11/26/16 21:08 97.7 61 16 123/59 97 11/26/16 20:20 89 11/26/16 14:25 96 21 11/26/16 14:00 58 18 139/65 95 Room Air I/O 11/26/16 11/26/16 11/26/16 11/27/16 11/27/16 11/27/16 07:00 15:00 23:00 07:00 15:00 23:00 Intake Total 1660 ml Balance 1660 ml Intake Oral 480 ml IV Total 1180 ml # Voids 1 Result Diagram: 11/27/16 0712 11/27/16 0712 Imaging Last Impressions Head CT 11/26/16 1153 Signed Impressions: Service Date/Time: Saturday, November 26, 2016 12:28 - CONCLUSION: Negative for an acute process. Los Shen MD FACR Chest X-Ray 11/26/16 1153 Signed Impressions: Service Date/Time: Saturday, November 26, 2016 11:52 - CONCLUSION: No acute disease. Los Shen MD FACR Carotid Artery Ultrasound 11/26/16 0000 Signed Impressions: Service Date/Time: Saturday, November 26, 2016 15:22 - CONCLUSION: No hemodynamically significant stenosis. Conrado Hernandez MD Brain MRI 11/26/16 0000 Signed Impressions: Service Date/Time: Saturday, November 26, 2016 19:03 - CONCLUSION: Normal examination for a patient of this age. Raad Mena MD Objective Remarks GENERAL: Well-developed, well-nourished female in NAD. SKIN: Warm and dry. HEAD: Atraumatic. Normocephalic. EYES: Pupils equal and round. No scleral icterus. No injection or drainage. ENT: No nasal bleeding or discharge. Mucous membranes pink and moist. NECK: Trachea midline. CARDIOVASCULAR: Regular rate and rhythm. No murmur appreciated. RESPIRATORY: No accessory muscle use. Clear to auscultation. Breath sounds equal bilaterally. GASTROINTESTINAL: Abdomen soft, non-tender, nondistended. Normoactive bowel sounds. MUSCULOSKELETAL: Extremities without clubbing, cyanosis, or edema. No obvious deformities. NEUROLOGICAL: Awake and alert. No obvious cranial nerve deficits. Left hand contracture with 4/5 naturopathic doctor strength, 4/5 strength of LLE, 5/5 strength of RUE, RLE. Bilateral upper and lower extremity sensation equal and intact. Normal speech. No facial droop/lid lag/tongue deviation. PSYCHIATRIC: Appropriate mood and affect; insight and judgment normal. A/P Assessment and Plan 66-year-old female with history of seizure, hypothyroidism, arthritis, presents with acute onset of left sided weakness and aphasia. Acute Left Sided Weakness & Aphasia: suspect TIA/CVA, possible seizure. Head CT images reviewed, unremarkable. CBC, BMP, TSH wnl. UA with possible UTI, see below. NIHSS, neuro checks, monitor on telemetry. PT/OT/ST. Check brain MRI, carotid U/S, holter monitor, EEG. Check lipid profile, HgbA1c, Vit B12, Vit D. Start aspirin 81mg. Give IVF. Consult Neurology. Recommends MRI. EEG pending. Appreciate neurology input. Started flexeril as muscle relaxant and also started ativan as need as patient gets anxious. Seizure: patient with hx of seizure in 2014, Follows with neurologist Dr. Raad Ng. Recent EEG showed "evidence of possible cortical irritability seen bilaterally but in an independent fashion suggesting multiple areas that could represent an epileptic foci". Now on Keppra 300mg bid ( question actual dose), with possible seizure as above, increased Keppra to 500mg bid. Neuro consult as above. UTI: UA with large leuks, patient with recent increased urinary frequency/ incontinence, occasional dysuria. Start on IV Rocephin. Monitor urine culture. Hypothyroidism: chronic, TSH wnl, continue patient's levothyroxine. DVT Prophylaxis: teds/SCDs, Lovenox DC plan: DC when improved and cleared by consultants. Ivy Campbell MD Nov 27, 2016 13:53
[2016-11-27] MEDS: cefTRIAXone INJ 1,000 MG in SODIUM CHLORIDE 0.9% INJ 100 ML IV SCH (14:22)
[2016-11-27] MEDS: ENOXAPARIN SODIUM 40 MG/0.4 ML SYRINGE SQ SCH (14:23)
--- NOTE | 2016-11-27 16:23 | MG ---
cc: DERECK DELUNA Lab No: [id number] Date: 11/27/2016 Age: 66 Sex: F Race: A 66-year-old, seizures, abnormal EEG in the past, Ursula Atbrianne, ceftriaxone. Diffuse beta and alpha rhythms are noted, some mild alpha rhythms are seen at epoch 46 bitemporal, not particularly synchronous. There is a small phase reversing alpha wave seen at T3 at epoch 47. Does not look specifically epileptiform. Some further bitemporal alpha waves are noted. Photic stimulation was performed without significant posterior driving. At epoch 81 a phase reversing sharp wave is seen, almost a spike of about 40 or 50 microvolts over the bitemporal head region. No prolonged seizure activity is seen. IMPRESSION Some bitemporal sharply contoured alpha waves are seen and at times a slight phase reversing and small almost spike is noted, bitemporal, there appears to be some slight disturbance, could be epileptiform, fairly freely seen throughout this recording. Clinical correlation is needed. MD ALON Quinteros/KIMBERLY /2:59 PM /4:15 PM
--- NOTE | 2016-11-27 17:15 | EC ---
Study Study Date:11/27/2016 STUDY CONCLUSIONS SUMMARY - Left ventricle: The cavity size was normal. Wall thickness was normal. Systolic function was normal. The estimated ejection fraction was in the range of 55% to 60%. Wall motion was normal; there were no regional wall motion abnormalities. - Mitral valve: Mild regurgitation. - Tricuspid valve: Mild regurgitation. - Pulmonary arteries: PA peak pressure: 32mm Hg (S). If LV function is below 40, please consider prescribing an ACEI or ARB or document rationale for non-use. PROCEDURE DATA STUDY STATUS: Elective. Procedure: Transthoracic echocardiography. Image quality was good. Scanning was performed from the parasternal, apical, and subcostal acoustic windows. Study completion: The patient tolerated the procedure well. Transthoracic echocardiography. M-mode, complete 2D, complete spectral Doppler, and color Doppler. Patient status: Inpatient. CARDIAC ANATOMY LEFT VENTRICLE: The cavity size was normal. Wall thickness was normal. Systolic function was normal. The estimated ejection fraction was in the range of 55% to 60%. Wall motion was normal; there were no regional wall motion abnormalities. AORTIC VALVE: Trileaflet; normal thickness leaflets. Doppler: Transvalvular velocity was within the normal range. There was no stenosis. No regurgitation. AORTA: Aortic root: The aortic root was normal in size. MITRAL VALVE: Structurally normal valve. Doppler: Transvalvular velocity was within the normal range. There was no evidence for stenosis. Mild regurgitation. LEFT ATRIUM: The atrium was normal in size. RIGHT VENTRICLE: The cavity size was normal. Wall thickness was normal. PULMONIC VALVE: Doppler: Transvalvular velocity was within the normal range. There was no evidence for stenosis. No regurgitation. TRICUSPID VALVE: Structurally normal valve. Doppler: Transvalvular velocity was within the normal range. Mild regurgitation. PULMONARY ARTERY: The main pulmonary artery was normal-sized. Systolic pressure was within the normal range. RIGHT ATRIUM: The atrium was normal in size. PERICARDIUM: There was no pericardial effusion. SYSTEMIC VEINS: Inferior vena cava: The vessel was normal in size. BASIC MEASUREMENTS ADULT NORMAL Left ventricle LV internal dimension, ED, chordal level, 43.8 mm 43-52 PLAX LV internal dimension, ES, chordal level, 36 mm 23-38 PLAX Fractional shortening, chordal level, PLAX *18 % >29 LV posterior wall thickness, ED 11 mm IVS/LVPW ratio, ED 0.96 <1.3 Ventricular septum Septal thickness, ED 10.6 mm Aortic valve Leaflet separation 19 mm 15-26 Right ventricle RV internal dimension, ED, PLAX 25.9 mm 19-38 BASIC MEASUREMENTS ADULT NORMAL Aortic valve Leaflet separation 19 mm 15-26 Aorta Root diameter, ED 27 mm 20-37 Left atrium Anterior-posterior dimension, ES 29 mm 19-40 LA/aortic root ratio 1.07 DOPPLER MEASUREMENTS ADULT NORMAL Main pulmonary artery Pressure, S *32 mm Hg =30 Tricuspid valve Regurgitant peak velocity 236 cm/s Peak RV-RA gradient, S 22 mm Hg Systemic veins Estimated CVP 10 mm Hg Right ventricle RV pressure, S *32 mm Hg <30 LEGEND: Mean values are shown as u=mean value. Asterisk (*) reyes values outside specified normal range. Prepared and signed by Kyle Donaldson [id number]
--- NOTE | 2016-11-27 18:32 | HHI.PR ---
Review/Management Daily Summary sleepy this evening occasional left sided spasming eeg reviewed, no obvious seizures to explain spasming, not a tia either will mri her c spine and increase gabapentin dosage, keep keppra as is Subjective Subjective Comments No overt seizures reported No headache Active Medications Current Medications Medications (Trade) Dose Ordered Sig/Eneida Route Start Time Stop Time Status Last Admin (NS 1000 ml Inj) 1,000 ml @ 100 mls/hr Q10H IV 11/26/16 13:46 11/26/16 15:18 (NS Flush) 2 ml UNSCH PRN FLUSH 11/26/16 14:00 (NS Flush) 2 ml BID FLUSH 11/26/16 21:00 11/27/16 10:08 (Tylenol) 650 mg Q4H PRN PO 11/26/16 14:00 (Zofran Inj) 4 mg Q6H PRN IVP 11/26/16 14:00 (Compazine Supp) 25 mg Q12H PRN VT 11/26/16 14:00 (Dulcolax Supp) 10 mg DAILY PRN VT 11/26/16 14:00 (Senokot) 17.2 mg Q12H PRN PO 11/26/16 14:00 (Lovenox Inj) 40 mg Q24H SQ 11/26/16 14:00 11/27/16 14:23 (Neurontin) 300 mg TID PO 11/26/16 18:00 11/27/16 14:21 (Keppra) 500 mg BID PO 11/26/16 21:00 11/27/16 10:05 (Synthroid) 112 mcg DAILY@06 PO 11/27/16 06:00 11/27/16 05:40 Non-Formulary Medication 35 mg TID PO 11/26/16 18:00 Hold (Aspirin Chew) 81 mg DAILY PO 11/27/16 09:00 (Lipitor) 10 mg HS PO 11/26/16 21:00 11/26/16 20:20 (D50w (Vial) Inj) 25 ml UNSCH PRN IV PUSH 11/26/16 14:00 Glucagon 1 mg 1 mg UNSCH PRN OTHER 11/26/16 14:00 (Rocephin Inj/NS Inj) 100 ml @ 200 mls/hr Q24H IV 11/26/16 14:00 11/27/16 14:22 (Flexeril) 5 mg Q8H PRN PO 11/27/16 13:15 11/27/16 13:15 (Ativan) 0.5 mg Q6H PRN PO 11/27/16 13:15 11/27/16 13:15 (Pill Splitter) 1 ea UNSCH PRN OTHER 11/27/16 13:15 Allergies Allergies Coded Allergies No Known Allergies (Unverified11/26/16) Exam I&O / VS 11/26/16 11/26/16 11/27/16 15:00 23:00 07:00 Intake Total 1660 ml Balance 1660 ml Intake Oral 480 ml IV Total 1180 ml # Voids 1 Vital Signs Date Time Temp Pulse Resp B/P Pulse Ox O2 Delivery O2 Flow Rate FiO2 11/27/16 16:00 96.5 65 20 123/64 98 11/27/16 12:00 96.9 65 20 139/72 98 11/27/16 08:00 95.4 64 20 139/70 96 11/27/16 04:32 98.3 54 18 93/54 97 11/27/16 00:00 97.4 69 21 122/68 98 11/26/16 21:08 97.7 61 16 123/59 97 11/26/16 20:20 89 Objective Radiology Results Last [address] 11/26/16 1153 Signed Impressions: Service Date/Time: Saturday, November 26, 2016 12:28 - CONCLUSION: Negative for an acute process. Los Shen MD FACR Chest X-Ray 11/26/16 1153 Signed Impressions: Service Date/Time: Saturday, November 26, 2016 11:52 - CONCLUSION: No acute disease. Los Shen MD FACR Carotid Artery Ultrasound 11/26/16 0000 Signed Impressions: Service Date/Time: Saturday, November 26, 2016 15:22 - CONCLUSION: No hemodynamically significant stenosis. Conrado Hernandez MD Brain MRI 11/26/16 0000 Signed Impressions: Service Date/Time: Saturday, November 26, 2016 19:03 - CONCLUSION: Normal examination for a patient of this age. Raad Mena MD Micro and Labs Laboratory Tests Test 11/26/16 11/27/16 21:37 07:12 Troponin I LESS THAN 0.02 Vitamin B12 Level 425 White Blood Count 4.0 Red Blood Count 4.12 Hemoglobin 12.8 Hematocrit 36.5 Mean Corpuscular Volume 88.7 Mean Corpuscular Hemoglobin 31.2 Mean Corpuscular Hemoglobin 35.1 Concent Red Cell Distribution Width 13.2 Platelet Count 213 Mean Platelet Volume 7.8 Neutrophils (%) (Auto) 46.5 Lymphocytes (%) (Auto) 42.0 Monocytes (%) (Auto) 8.2 Eosinophils (%) (Auto) 2.3 Basophils (%) (Auto) 1.0 Neutrophils # (Auto) 1.8 Lymphocytes # (Auto) 1.7 Monocytes # (Auto) 0.3 Eosinophils # (Auto) 0.1 Basophils # (Auto) 0.0 CBC Comment DIFF FINAL Differential Comment Sodium Level 142 Potassium Level 3.9 Chloride Level 108 Carbon Dioxide Level 26.9 Anion Gap 7 Blood Urea Nitrogen 12 Creatinine 0.80 Estimat Glomerular Filtration 72 Rate Random Glucose 85 Calcium Level 8.4 Triglycerides Level 90 Cholesterol Level 198 LDL Cholesterol 124 HDL Cholesterol 56.4 Cholesterol/HDL Ratio 3.51 Date/Time Procedure Status Source Growth 11/26/16 13:19 Urine Culture - Preliminary Resulted Urine Catheterized Urine Gram Negative Jann Maguire MD Nov 27, 2016 18:32
[2016-11-27] MEDS: ATORVASTATIN 10 MG TAB PO SCH ×2 (20:43→20:51)
--- NOTE | 2016-11-27 21:19 | RADRPT ---
EXAM DATE/TIME: 11/27/2016 20:01 [facility] COMPARISON: No previous studies available for comparison. INDICATIONS : Weakness. Left sided spasms. MEDICAL HISTORY : Seizures. SURGICAL HISTORY : Bilateral knee and right hip replacement. ENCOUNTER: Initial ACUITY: 1 day PAIN SCORE: 0/10 LOCATION: Neck. TECHNIQUE: Multiplanar, multisequence MRI examination of the cervical spine was performed. FINDINGS: VERTEBRAE: Normal vertebral body height. Homogeneous marrow signal. ALIGNMENT: No evidence of subluxation. CORD: Normal configuration and signal. POST FOSSA: The cerebellar tonsils are normal in position. C2-C3: The thecal sac has a normal configuration. There is no evidence of disc herniation or spinal canal s tenosis. The neural foramina are patent bilaterally. C3-C4: The thecal sac has a normal configuration. There is no evidence of disc herniation or spinal canal s tenosis. The neural foramina are patent bilaterally. C4-C5: The thecal sac has a normal configuration. There is no evidence of disc herniation or spinal canal s tenosis. The neural foramina are patent bilaterally. C5-C6: Posterior osteophytic ridging effaces the thecal sac around the cord but no cord compression. Moderat e bilateral foraminal stenosis. C6-C7: The thecal sac has a normal configuration. There is no evidence of disc herniation or spinal canal s tenosis. The neural foramina are patent bilaterally. C7-T1: The thecal sac has a normal configuration. There is no evidence of disc herniation or spinal canal s tenosis. The neural foramina are patent bilaterally. CONCLUSION: 1. No acute bony abnormality. No cord compression or cord edema. Degenerative disc disease in the low er cervical spine most prominent at C5-6 with effacement of the thecal sac around the cord and modera te bilateral neural foraminal stenosis. Subcentimeter perineural cysts bilaterally at C6-7. Raad Mena MD on November 27, 2016 at 21:14 Board Certified Radiologist. This report was verified electronically.
[2016-11-28] VITALS (7 sets, daily range): BP systolic 121–137; BP diastolic 57–67; PULSE 71–89; RESP 16–20; TEMP 97.7–98.3; O2SAT 95–98
[2016-11-28] MEDS: SODIUM CHLOR 0.9% 1000 ML INJ 1,000 ML IV SCH (06:12)
[2016-11-28] MEDS: LEVOTHYROXINE SODIUM 112 MCG TAB PO SCH (06:12)
[2016-11-28] MEDS: INSULIN ASPART SUPPLEMENTAL SCALE SQ SCH ×2 (06:25→12:50)
[2016-11-28] MEDS: GABAPENTIN 300 MG CAP PO SCH (08:47)
[2016-11-28] MEDS: levETIRAcetam 500 MG TAB PO SCH ×2 (08:47→20:09)
[2016-11-28] MEDS: ASPIRIN 81 MG CHEW TAB PO SCH (08:47)
[2016-11-28] MEDS: SODIUM CHLORIDE 0.9% FLUSH 5 ML FLUSH FLUSH SCH ×2 (08:47→20:10)
[2016-11-28] MEDS: GABAPENTIN 400 MG CAP PO SCH ×3 (09:00→18:00)
[2016-11-28] MEDS ORDERED: PIPERACIL-TAZO 3.375 GM PREMIX 50 ML IV SCH (12:00)
[2016-11-28 12:06] LABS: HEMOGLOBIN A1b 0.9 %; HEMOGLOBIN Ao 86.6 %; HEMOGLOBIN F 0.7 %; HEMOGLOBIN LA1C 1.5 %; HEMOGLOBIN P3 3.5 %
--- NOTE | 2016-11-28 12:24 | HHI.PR ---
Subjective Remarks Follow-up for spasms. The patient denies any further spasms overnight. She does state she has some left lower sternal any numbness. Objective Vitals Vital Signs Date Time Temp Pulse Resp B/P Pulse Ox O2 Delivery O2 Flow Rate FiO2 11/28/16 08:53 96 21 11/28/16 07:41 97.7 83 20 137/63 96 11/28/16 03:49 97.9 87 16 126/57 95 11/27/16 23:59 98.1 70 18 130/60 96 11/27/16 21:02 74 11/27/16 19:36 21 11/27/16 19:36 98.2 74 19 134/62 96 11/27/16 16:00 96.5 65 20 123/64 98 I/O 11/27/16 11/27/16 11/27/16 11/28/16 11/28/16 11/28/16 07:00 15:00 23:00 07:00 15:00 23:00 Intake Total 1660 ml 600 ml Balance 1660 ml 600 ml Intake Oral 480 ml 600 ml IV Total 1180 ml # Voids 1 2 Result Diagram: 11/27/1612 11/27/16 0712 Imaging Last Impressions Cervical Spine MRI 11/27/16 0000 Signed Impressions: Service Date/Time: November 20:01 - CONCLUSION: 1. No acute bony abnormality. No cord compression or cord edema. Degenerative disc disease in the lower cervical spine most prominent at C5-6 with effacement of the thecal sac around the cord and moderate bilateral neural foraminal stenosis. Subcentimeter perineural cysts bilaterally at C6-7. Raad Mena MD Head CT 11/26/16 115 Signed Impressions: Service Date/Time: Saturday, November 26, 2016 12:28 - CONCLUSION: Negative for an acute process. Los Shen MD FACR Chest X-Ray 11/26/16 115 Signed Impressions: Service Date/Time: Saturday, November 26, 2016 11:52 - CONCLUSION: No acute disease. Los Shen MD FACR Carotid Artery Ultrasound 11/26/16 0000 Signed Impressions: Service Date/Time: Saturday, November 26, 2016 15:22 - CONCLUSION: No hemodynamically significant stenosis. Conrado Hernandez MD Brain MRI 11/26/16 0000 Signed Impressions: Service Date/Time: Saturday, November 26, 2016 19:03 - CONCLUSION: Normal examination for a patient of this age. Raad Mena MD Objective Remarks GENERAL: Well-developed well-nourished. In no acute distress. SKIN: Warm and dry. No lesions noted. HEENT: Normocephalic. Pupils equal and round. Mucous membranes pink and moist. CARDIOVASCULAR: Regular rate and rhythm. No murmur appreciated. RESPIRATORY: No accessory muscle use. Clear to auscultation. Breath sounds equal bilaterally. GASTROINTESTINAL: Abdomen soft, non-tender, nondistended. Bowel sounds x4. MUSCULOSKELETAL: No obvious deformities. No clubbing or cyanosis. No edema. NEUROLOGICAL: Awake and alert. Moves upper and lower extremities spontaneously. Normal speech. Improving left upper extremity strength. Left lower extremity weakness. PSYCHIATRIC: Appropriate mood and affect; insight and judgment normal. A/P Assessment and Plan 66-year-old female with history of seizure, hypothyroidism, arthritis, presents with acute onset of left sided weakness and aphasia. Acute neurological deficits. Left Sided Weakness, aphasia, muscle spasms. Etiologies include TIA/CVA versus seizure versus other. Images/labs reviewed: Head CT unremarkable. TSH and B12 wnl. Vitamin D low. LDL 124. Brain MRI normal. Carotid ultrasound no significant stenosis. C- spine MRI with no acute process, degenerative disc disease in the lower cervical spine with moderate bilateral neuroforaminal stenosis. EEG abnormal, nonspecific, possibly epileptiform. Echocardiogram with normal systolic function and EF. -NIHSS, neuro checks, monitor on telemetry. -PT/OT/ST. -holter monitor. -Hemoglobin A1c pending. -Started aspirin 81mg. -Consulted neurology, appreciate input from Dr. Mixon -Continue Keppra, gabapentin increased -Started Flexeril as muscle relaxant and also started Ativan as need as patient gets anxious. Seizure disorder: patient with hx of seizure in 2014, Follows with neurologist Dr. Raad Ng. As above, appreciate neurology recommendations. Received IV Keppra bolus. Continue Keppra 500 mg twice a day and gabapentin 400 mg 3 times a day. UTI: Urine had evidence of UTI. Patient with recent increased urinary frequency /incontinence, occasional dysuria. Was on IV Rocephin, however urine culture with Escherichia coli ESBL. Consulted ID, discussed with Dr. Mendzoa, recommended repeating urine culture and following up tomorrow for further ID antibiotic recommendations if any are needed. Hypothyroidism: chronic, TSH wnl, continue patient's levothyroxine. DVT Prophylaxis: teds/SCDs, Lovenox Written by Dann Mohr, acting as scribe for Dr. Campbell on 11/28/16 at 12:21. The documentation accurately reflects the work performed [id number] by sc Dr. Campbell on 11/28/16 at 12:21. Discharge Planning Disposition pending clinical course. Dann Mohr Nov 28, 2016 12:24 Ivy Campbell MD Nov 28, 2016 16:28
[2016-11-28] MEDS ORDERED: MISCELLANEOUS PHARMACY INFORMATION XX PRN (12:30)
[2016-11-28] MEDS ORDERED: ASP: Documented ESBL, MDR A baumannii or P. aeruginosa XX PRN (12:30)
[2016-11-28] MEDS ORDERED: ERTAPENEM INJ 1,000 MG in SODIUM CHLORIDE 0.9% INJ 100 ML IV SCH (12:30)
--- NOTE | 2016-11-28 13:01 | PD.ID.CON ---
History of Present Illness Service Infectious Disease Consult Requested By /Dann GALLEGOS. Reason for Consult Evaluation and Mment of ? ESBL E.coli UTI. Primary Care Physician Non-Staff Diagnoses: History of Present Illness is a 66 y/o CF with PMHx of seizure disorder, hypothyroidism, arthritis , presents with acute onset of left sided weakness and aphasia. The patient's is at bedside who assists with the history. Patient and spouse report that few hours prior to coming to the hospital, patient had an episode of aphasia, with some drooling, and diffuse left upper and lower extremity weakness. The patient was very tearful during the episode because of the intense pain. The patient reports recently her left hand has been having episodes of spasms, however today it was much more severe and included the left lower extremity which she described as "turning inward". She states this lasted over 2 hours and was very painful. By the time they arrived to the ER, most of the symptoms resolved however had persistent left hand and leg spasms and associated weakness. She denies any changes in vision. She does report recent unsteady gait, poor balance, and is constantly running into things while she's walking. The patient reports she had a similar episode in 2014 with left arm/leg weakness, went to the hospital because she thought she was having a stroke however there was no evidence of stroke, EEG was abnormal, and she has been on Keppra 300mg bid ever since. Patient reports she has periods of incontinence of stool and urine. Unsure if this is in her episodes of seizure. She reports wearing diapers off and on. Patient reports dysparenuia, dryness in vaginal area with burning and irritation. She reports she often scratches. She denies any dysuria at present time to me. Patient has not recd any effective treatment for her ESBL organism in urine at present time. She reports having had an EEG today which shows epileptiform activity and her dose has been increased. She reports her urine was collected from a bed amaya and she may have stooled in it as well. She denies any recent UTIs being treated. Last one more than a year back. She reports she has been treated with Azithro and Penicillin for URIs by her neighbor who is a physician as well. They are originally from [place], [place] and are snow birds. Of note her description of the seizure meds and doses did not seem accurate per Neuro note. Concern about compliance in general. Patient had disagreed and she would clarify with above statements about antibiotic use and infections as well. The would often respond in a surprised way. ID consulted for evaluation and Mment of ? ESBL E.coli UTI. Review of Systems Constitutional: DENIES: Diaphoretic episodes, Fatigue, Fever, Weight gain, Weight loss, Chills, Dizziness, Change in appetite, Night Sweats Endocrine: DENIES: Abnorml menstrual pattern, Heat/cold intolerance, Polydipsia , Polyuria, Polyphagia Eyes: DENIES: Blurred vision, Diplopia, Eye inflammation, Eye pain, Vision loss , Photosensitivity, Double Vision Ears, nose, mouth, throat: DENIES: Tinnitus, Hearing loss, Vertigo, Nasal discharge, Oral lesions, Throat pain, Hoarseness, Ear Pain, Running Nose, Epistaxis, Sinus Pain, Toothache, Odynophagia Respiratory: DENIES: Apneas, Cough, Snoring, Wheezing, Hemoptysis, Sputum production, Shortness of breath Cardiovascular: DENIES: Chest pain, Palpitations, Syncope, Dyspnea on Exertion , PND, Lower Extremity Edema, Orthopnea, Claudication Gastrointestinal: DENIES: Abdominal pain, Black stools, Bloody stools, Constipation, Diarrhea, Nausea, Vomiting, Difficulty Swallowing, Anorexia Genitourinary: DENIES: Abnormal vaginal bleeding, Dysmenorrhea, Dyspareunia, Sexual dysfunction, Urinary frequency, Urinary incontinence, Urgency, Hematuria , Dysuria, Nocturia, Vaginal discharge Musculoskeletal: DENIES: Joint pain, Muscle aches, Stiffness, Joint Swelling, Back pain, Neck pain Integumentary: DENIES: Abnormal pigmentation, Pruritus, Rash, Nail changes, Breast masses, Breast skin changes, Nipple discharge Hematologic/lymphatic: DENIES: Bruising, Lymphadenopathy Immunologic/allergic: DENIES: Eczema, Urticaria Neurologic: COMPLAINS OF: Seizures, DENIES: Abnormal gait, Headache, Localized weakness, Paresthesias, Speech Problems, Tremor, Poor Balance Psychiatric: DENIES: Anxiety, Confusion, Mood changes, Depression, Hallucinations, Agitation, Suicidal Ideation, Homicidal Ideation, Delusions Past Family Social History Allergies: Coded Allergies: No Known Allergies (Unverified , 11/26/16) Past Medical History seizure 2015 arthritis hypotension hypothyroidism Past Surgical History thyroidectomy hemorrhoidectomy bilateral total knee arthroplasties right total hip arthroplasty Reported Medications Reported Meds & Active Scripts Active Reported Zorvolex (Diclofenac) 35 Mg Cap 35 Mg PO TID Keppra (Levetiracetam) 500 Mg Tab 300 Mg PO BID Gabapentin 300 Mg Cap 300 Mg PO TID Levothyroxine (Levothyroxine Sodium) 112 Mcg Tab 112 Mcg PO DAILY Active Ordered Medications Current Medications Medications (Trade) Dose Ordered Sig/Eneida Route Start Time Stop Time Status Last Admin (NS 1000 ml Inj) 1,000 ml @ 100 mls/hr Q10H IV 11/26/16 13:46 11/28/16 06:12 (NS Flush) 2 ml UNSCH PRN FLUSH 11/26/16 14:00 (NS Flush) 2 ml BID FLUSH 11/26/16 21:00 11/28/16 08:47 (Tylenol) 650 mg Q4H PRN PO 11/26/16 14:00 (Zofran Inj) 4 mg Q6H PRN IVP 11/26/16 14:00 (Compazine Supp) 25 mg Q12H PRN DC 11/26/16 14:00 (Dulcolax Supp) 10 mg DAILY PRN DC 11/26/16 14:00 (Senokot) 17.2 mg Q12H PRN PO 11/26/16 14:00 (Lovenox Inj) 40 mg Q24H SQ 11/26/16 14:00 11/28/16 15:14 (Keppra) 500 mg BID PO 11/26/16 21:00 11/28/16 08:47 (Synthroid) 112 mcg DAILY@06 PO 11/27/16 06:00 11/28/16 06:12 Non-Formulary Medication 35 mg TID PO 11/26/16 18:00 Hold (Aspirin Chew) 81 mg DAILY PO 11/27/16 09:00 11/28/16 08:47 (Lipitor) 10 mg HS PO 11/26/16 21:00 11/26/16 20:20 (D50w (Vial) Inj) 25 ml UNSCH PRN IV PUSH 11/26/16 14:00 (Glucagon Inj) 1 mg UNSCH PRN OTHER 11/26/16 14:00 (Flexeril) 5 mg Q8H PRN PO 11/27/16 13:15 11/27/16 13:15 (Ativan) 0.5 mg Q6H PRN PO 11/27/16 13:15 11/27/16 13:15 (Pill Splitter) 1 ea UNSCH PRN OTHER 11/27/16 13:15 (Neurontin) 400 mg TID PO 11/28/16 09:00 11/28/16 15:14 (Vitamin D3) 1,000 units DAILY PO 11/28/16 13:00 11/28/16 15:14 Family History Mother with intracranial hemorrhage/CVA age ~83, carotid stenosis, still alive at age 89 Father in his 30s from accident, however did have heart disease Brother with a seizure x1 in the past. Social History Smoked tobacco for 15+years, 1.5 PPD, quit in 1982 Denies illicit drug use Drinks 1 jesse occasionally Physical Exam Vital Signs Vital Signs Date Time Temp Pulse Resp B/P Pulse Ox O2 Delivery O2 Flow Rate FiO2 11/28/16 08:53 96 21 11/28/16 07:41 97.7 83 20 137/63 96 11/28/16 03:49 97.9 87 16 126/57 95 11/27/16 23:59 98.1 70 18 130/60 96 11/27/16 21:02 74 11/27/16 19:36 21 11/27/16 19:36 98.2 74 19 134/62 96 11/27/16 16:00 96.5 65 20 123/64 98 Physical Exam GENERAL: Obese CF patient, in no apparent distress. SKIN: No rashes. HEAD: Atraumatic. Normocephalic. No temporal or scalp tenderness. EYES: Pupils equal round and reactive. Extraocular motions intact. No scleral icterus. No injection or drainage. ENT: Nose without bleeding, purulent drainage or septal hematoma. Throat without erythema, tonsillar hypertrophy or exudate. Uvula midline. Airway patent. NECK: Trachea midline. Supple, nontender, no meningeal signs. CARDIOVASCULAR: HS audible. No murmur appreciated. RESPIRATORY: Clear to auscultation. Breath sounds equal bilaterally. No wheezes , rales, or rhonchi. GASTROINTESTINAL: Abdomen soft, non-tender, nondistended. Obese. MUSCULOSKELETAL: No pedal edema. Right hip prior surgical scar intact. Bilateral knee surgical scars intact with no e/o infection. NEUROLOGICAL: Awake and alert. Grossly non focal Psych: cooperative IV line sites with no e/o infection. Laboratory Date/Time Procedure Status Source Growth 11/26/16 13:19 Urine Culture - Final Complete Urine Catheterized Urine Escherichia Coli Esbl Positive Result Diagram: 11/27/1612 11/27/16 0712 Imaging Last Impressions Cervical Spine MRI 11/27/16 0000 Signed Impressions: Service Date/Time: November 20:01 - CONCLUSION: 1. No acute bony abnormality. No cord compression or cord edema. Degenerative disc disease in the lower cervical spine most prominent at C5-6 with effacement of the thecal sac around the cord and moderate bilateral neural foraminal stenosis. Subcentimeter perineural cysts bilaterally at C6-7. Raad Mena MD Head CT 11/26/16 1153 Signed Impressions: Service Date/Time: Saturday, November 26, 2016 12:28 - CONCLUSION: Negative for an acute process. Los Shen MD FACR Chest X-Ray 11/26/16 1153 Signed Impressions: Service Date/Time: Saturday, November 26, 2016 11:52 - CONCLUSION: No acute disease. Los Shen MD FACR Carotid Artery Ultrasound 11/26/16 0000 Signed Impressions: Service Date/Time: Saturday, November 26, 2016 15:22 - CONCLUSION: No hemodynamically significant stenosis. Conrado Hernandez MD Brain MRI 11/26/16 0000 Signed Impressions: Service Date/Time: Saturday, November 26, 2016 19:03 - CONCLUSION: Normal examination for a patient of this age. Raad Mena MD Assessment and Plan Assessment and Plan ESBL in urine ? ESBL E.coli UTI present on admission. recurrent UTI prior antibiotic exposures. Recently treated with penicillin for cold. Seizure on presentation. EEG abnormal. Dose increased by neurologist. Recs: Blood cultures x 2 today Repeat UA with straight cath. If repeat UA positive call ID special education instructor. At present time would like to avoid Carbapenem as it can lower the seizure threshold. If repeat UA does not reflex to culture no need for antibiotics. Counseled patient and provided education for ESBL and gave education material. Also counseled about avoiding unnecessary antibiotics. Counseled about Urology referral to address the Urinary incontinence. Counseled about GI referral to address Stool incontinence. D/w RN about seizure precautions. Shonda Mendoza MD Nov 28, 2016 13:01
[2016-11-28 14:05] LABS: BACTERIA, URINE RARE /hpf; BLOOD, URINE NEG (NEG); GLUCOSE,URINE NEG (NEG); KETONE, URINE NEG (NEG); NITRITE,URINE NEG (NEG); SQUAMOUS EPITHELIAL CELL URINE 1 /hpf (0-5); URINE COLOR LIGHT-YELLOW (YELLW/STRAW)
[2016-11-28 14:06] LABS: COMMENT (UR) CATH-CULTURE IND; CULTURE IF INDICATED CATH CULTURE IND
[2016-11-28] MEDS: CHOLECALCIFEROL (VIT D3) 1000 UNIT TAB PO SCH (15:14)
[2016-11-28] MEDS: ENOXAPARIN SODIUM 40 MG/0.4 ML SYRINGE SQ SCH (15:14)
[2016-11-28] MEDS: ATORVASTATIN 10 MG TAB PO SCH (20:09)
[2016-11-29] VITALS (8 sets, daily range): BP systolic 108–125; BP diastolic 55–65; PULSE 66–80; RESP 17–19; TEMP 97.8–98.3; O2SAT 95–98
[2016-11-29] MEDS: LEVOTHYROXINE SODIUM 112 MCG TAB PO SCH (05:05)
--- NOTE | 2016-11-29 08:41 | HHI.PR ---
Subjective Remarks Follow-up for UTI. Patient denies any further spasms. She does state that her left lower extremity remains in none. She states that she actually is on gabapentin 500 mg at home. She denies any urinary symptoms or abdominal pain. She denies any fevers or chills. She denies any further anxiety. She denies any chest pain or shortness of breath. She has been having some constipation here, but did receive some medication for that earlier. Objective Vitals Vital Signs Date Time Temp Pulse Resp B/P Pulse Ox O2 Delivery O2 Flow Rate FiO2 11/29/16 08:20 98.3 66 17 119/58 96 11/29/16 03:56 98.0 70 18 125/65 95 11/29/16 00:43 98.2 72 19 120/65 96 11/28/16 20:18 98.3 71 19 121/67 98 11/28/16 20:00 76 11/28/16 15:44 98.0 81 20 136/65 97 11/28/16 08:53 96 21 I/O 11/28/16 11/28/16 11/28/16 11/29/16 11/29/16 11/29/16 07:00 15:00 23:00 07:00 15:00 23:00 Intake Total 600 ml 240 ml Balance 600 ml 240 ml Intake Oral 600 ml 240 ml # Voids 5 2 Result Diagram: 11/27/16 0712 11/27/16 0712 Imaging Last Impressions Cervical Spine MRI 11/27/16 0000 Signed Impressions: Service Date/Time: November 20:01 - CONCLUSION: 1. No acute bony abnormality. No cord compression or cord edema. Degenerative disc disease in the lower cervical spine most prominent at C5-6 with effacement of the thecal sac around the cord and moderate bilateral neural foraminal stenosis. Subcentimeter perineural cysts bilaterally at C6-7. Raad Mena MD Head CT 11/26/16 1153 Signed Impressions: Service Date/Time: Saturday, November 26, 2016 12:28 - CONCLUSION: Negative for an acute process. Los Shen MD FACR Chest X-Ray 11/26/16 1153 Signed Impressions: Service Date/Time: Saturday, November 26, 2016 11:52 - CONCLUSION: No acute disease. Los Shen MD FACR Carotid Artery Ultrasound 11/26/16 0000 Signed Impressions: Service Date/Time: Saturday, November 26, 2016 15:22 - CONCLUSION: No hemodynamically significant stenosis. Conrado Hernandez MD Brain MRI 11/26/16 0000 Signed Impressions: Service Date/Time: Saturday, November 26, 2016 19:03 - CONCLUSION: Normal examination for a patient of this age. Raad Mena MD Objective Remarks GENERAL: Well-developed well-nourished. In no acute distress. SKIN: Warm and dry. No lesions noted. HEENT: Normocephalic. Pupils equal and round. Mucous membranes pink and moist. CARDIOVASCULAR: Regular rate and rhythm. No murmur appreciated. RESPIRATORY: No accessory muscle use. Clear to auscultation. Breath sounds equal bilaterally. GASTROINTESTINAL: Abdomen soft, non-tender, nondistended. Bowel sounds x4. MUSCULOSKELETAL: No obvious deformities. No clubbing or cyanosis. No edema. NEUROLOGICAL: Awake and alert. Moves upper and lower extremities spontaneously. Normal speech. Strength 5/5 in all extremities. Sensation grossly intact in lower extremities. PSYCHIATRIC: Appropriate mood and affect; insight and judgment normal. A/P Assessment and Plan 66-year-old female with history of seizure, hypothyroidism, arthritis, presents with acute onset of left sided weakness and aphasia. Acute neurological deficits. Left Sided Weakness, aphasia, muscle spasms. Etiologies include TIA/CVA versus seizure versus other. Images/labs reviewed: Head CT unremarkable. TSH and B12 wnl. Vitamin D low. LDL 124. Brain MRI normal. Carotid ultrasound no significant stenosis. C- spine MRI with no acute process, degenerative disc disease in the lower cervical spine with moderate bilateral neuroforaminal stenosis. EEG abnormal, nonspecific, possibly epileptiform. Echocardiogram with normal systolic function and EF. A1c 5.4. -NIHSS, neuro checks, monitor on telemetry. -PT/OT/ST. -holter monitor. -Started aspirin 81mg. -Consulted neurology, appreciate input from Dr. Mixon -Continue Keppra, gabapentin increased -Started Flexeril prn for spasms and also started Ativan as need as patient gets anxious. Seizure disorder: patient with hx of seizure in 2014, Follows with neurologist Dr. Raad Ng. As above, appreciate neurology recommendations. Received IV Keppra bolus. Continue Keppra 500 mg twice a day and gabapentin 500 mg 3 times a day. UTI: Urine had evidence of UTI. Patient with recent increased urinary frequency /incontinence, occasional dysuria. Was on IV Rocephin, however urine culture with Escherichia coli ESBL. Consulted ID, discussed with Dr. Mendoza, recommended repeating urine culture and following up tomorrow for further ID antibiotic recommendations if any are needed. Repeat culture currently pending. Hypothyroidism: chronic, TSH wnl, continue patient's levothyroxine. Constipation: Start Colace scheduled. Continue sennosides as needed. DVT Prophylaxis: teds/SCDs, Lovenox Written by Dann Mohr, acting as scribe for Dr. Campbell on 11/29/16 at 08:40. The documentation accurately reflects the work performed [id number] by co Dr. Campbell on 11/29/16 at 08:40. Discharge Planning Further disposition pending results of urine culture. Dann Mohr Nov 29, 2016 08:41 Ivy Campbell MD Nov 29, 2016 14:26
[2016-11-29] MEDS: levETIRAcetam 500 MG TAB PO SCH ×2 (08:51→20:14)
[2016-11-29] MEDS: CHOLECALCIFEROL (VIT D3) 1000 UNIT TAB PO SCH (08:51)
[2016-11-29] MEDS: GABAPENTIN 400 MG CAP PO SCH ×3 (08:52→18:38)
[2016-11-29] MEDS: ASPIRIN 81 MG CHEW TAB PO SCH (08:54)
[2016-11-29] MEDS: DOCUSATE SODIUM 100 MG CAP PO SCH ×2 (08:56→20:14)
[2016-11-29] MEDS: GABAPENTIN 100 MG CAP PO SCH ×3 (08:57→18:37)
[2016-11-29] MEDS: SODIUM CHLORIDE 0.9% FLUSH 5 ML FLUSH FLUSH SCH ×2 (09:00→21:00)
--- NOTE | 2016-11-29 09:05 | HM ---
Date Performed: 11/26/2016 Time Performed: 21:19:00 HOOKUP DATE: 11/26/16 09:19:00 PM Wed ANALYSIS START TIME: 11/26/2016 9:24:00 PM ANALYSIS END TIME: 11/27/2016 6:55:04 PM PATIENT AGE: 66 PATIENT HEIGHT PATIENT WEIGHT DRUG LIST PATIENT DIAGNOSIS TEST NARRATIVE: The patient's average heart rate was 66 BPM. No episodes of tachycardia wer e noted. No episodes of bradycardia were noted. No pauses exceeding 2.0 seconds were noted. 27 ventricular ectopics, which represented < 1% of the total beat count, were noted. The highest dewey tricular ectopic frequency occurred from 08:00 AM to 09:00 AM Francie. During this time 5 VE(s) occurred . Ventricular ectopics were observed as 27 isolated beat(s) only. No couplets or runs were noted. 3 supraventricular ectopics, which represented < 1% of the total beat count, were noted. The high est supraventricular ectopic frequency occurred from 06:00 AM to 07:00 AM Francie. During this time 2 SV E(s) occurred. Multiple episodes of ST depression (defined as -1.0 mm or more) were noted in freddy nnel 1. The maximum depression of -1.9 mm occurred at 11:57:25 AM Francie. Multiple episodes of ST depr ession (defined as -1.0 mm or more) were noted in channel 2. The maximum depression of -1.8 mm occu rred at 11:57:13 AM Francie. Multiple episodes of ST depression (defined as -1.0 mm or more) were noted in channel 3. The maximum depression of -2.0 mm occurred at 11:57:11 AM Francie. No diary entries were made by the patient. TEST INTERPRETATION: Agree with the narrative. Overall, this patient has very infrequent ventric ular with no complex forms and only one PAC present with no atrial fibrillation or other complex arry thmias present. No patient diary entries present. Overall, this appears to be a very benign appearing holter monitor. Signed by : Delgado Mccormack
[2016-11-29] MEDS: ENOXAPARIN SODIUM 40 MG/0.4 ML SYRINGE SQ SCH (14:55)
[2016-11-29] MEDS ORDERED: MISCELLANEOUS PHARMACY INFORMATION XX PRN (15:45)
[2016-11-29] MEDS ORDERED: ASP: Documented ESBL, MDR A baumannii or P. aeruginosa XX PRN (15:45)
[2016-11-29] MEDS: ERTAPENEM INJ 1,000 MG in SODIUM CHLORIDE 0.9% INJ 100 ML IV SCH (18:22)
[2016-11-29] MEDS: LORazepam 0.5 MG TAB PO PRN (18:37)
[2016-11-29] MEDS: ATORVASTATIN 10 MG TAB PO SCH (20:14)
--- NOTE | 2016-11-29 23:25 | HHI.IDPN ---
Subjective Subjective Remarks ID X cover for Dr Mendoza Delayed entry, pt was seen around 5pm record reviewed 66 yo F admitted with neurological complaints found to have UA/clx cw UTI She grew out ESBL + org Repaet clx straight cath also growing a GNB admitts somw vague urinary complaints afebrile Antibiotics CFTX Allergies: Coded Allergies: No Known Allergies (Unverified , 11/26/16) Objective . Vital Signs Date Time Temp Pulse Resp B/P Pulse Ox O2 Delivery O2 Flow Rate FiO2 11/29/16 22:31 98.2 72 19 110/55 95 11/29/16 16:25 97.8 76 18 108/57 98 11/29/16 12:51 73 18 119/57 96 11/29/16 08:20 98.3 66 17 119/58 96 11/29/16 08:00 76 11/29/16 03:56 98.0 70 18 125/65 95 11/29/16 00:43 98.2 72 19 120/65 96 11/28/16 11/28/16 11/29/16 15:00 23:00 07:00 Intake Total 600 ml 240 ml Balance 600 ml 240 ml Intake Oral 600 ml 240 ml # Voids 5 2 . Microbiology Date/Time Procedure Status Source Growth 11/28/16 13:35 Urine Culture - Preliminary Resulted Urine Clean Catch Gram Negative Artem 11/28/16 13:50 Aerobic Blood Culture - Preliminary Resulted Blood Peripheral NO GROWTH IN 1 DAY 11/28/16 13:50 Anaerobic Blood Culture - Preliminary Resulted Blood Peripheral NO GROWTH IN 1 DAY 11/28/16 13:58 Aerobic Blood Culture - Preliminary Resulted Blood Peripheral NO GROWTH IN 1 DAY 11/28/16 13:58 Anaerobic Blood Culture - Preliminary Resulted Blood Peripheral NO GROWTH IN 1 DAY Imaging Last Impressions Cervical Spine MRI 11/27/16 0000 Signed Impressions: Service Date/Time: November 20:01 - CONCLUSION: 1. No acute bony abnormality. No cord compression or cord edema. Degenerative disc disease in the lower cervical spine most prominent at C5-6 with effacement of the thecal sac around the cord and moderate bilateral neural foraminal stenosis. Subcentimeter perineural cysts bilaterally at C6-7. Raad Mena MD Head CT 11/26/16 1153 Signed Impressions: Service Date/Time: Saturday, November 26, 2016 12:28 - CONCLUSION: Negative for an acute process. Los Shen MD FACR Chest X-Ray 11/26/16 1153 Signed Impressions: Service Date/Time: Saturday, November 26, 2016 11:52 - CONCLUSION: No acute disease. Los Shen MD FACR Carotid Artery Ultrasound 11/26/16 0000 Signed Impressions: Service Date/Time: Saturday, November 26, 2016 15:22 - CONCLUSION: No hemodynamically significant stenosis. Conrado Hernandez MD Brain MRI 11/26/16 0000 Signed Impressions: Service Date/Time: Saturday, November 26, 2016 19:03 - CONCLUSION: Normal examination for a patient of this age. Raad Mena MD Physical Exam GENERAL: Obese CF patient, in no apparent distress. SKIN: No rashes. EYES: Pupils equal round and reactive. Extraocular motions intact. No scleral icterus. No injection or drainage. ENT: Throat without erythema, moist mucosae CARDIOVASCULAR: HS audible. No murmur appreciated. RESPIRATORY: Clear to auscultation. Breath sounds equal bilaterally. No wheezes , rales, or rhonchi. GASTROINTESTINAL: Abdomen soft, non-tender, nondistended. Obese. MUSCULOSKELETAL: No pedal edema. Right hip prior surgical scar intact. Bilateral knee surgical scars intact with no e/o infection. NEUROLOGICAL: Awake and alert. Grossly non focal Psych: cooperative, but emotionally labile, cries easily IV line sites with no e/o infection. Assessment & Plan Remarks ESBL in urine ? ESBL E.coli UTI present on admission. recurrent UTI prior antibiotic exposures. Recently treated with penicillin for cold. Seizure on presentation. EEG abnormal. Dose increased by neurologist. Recs: fu blood clx start Ertapenem fu straight cath clx result untill final Candace Puri MD Nov 29, 2016 23:25
[2016-11-30] VITALS (8 sets, daily range): BP systolic 103–133; BP diastolic 51–64; PULSE 64–79; RESP 18–19; TEMP 97.5–98.3; O2SAT 93–97
[2016-11-30] MEDS: LEVOTHYROXINE SODIUM 112 MCG TAB PO SCH (06:05)
[2016-11-30] MEDS: ASPIRIN 81 MG CHEW TAB PO SCH (08:51)
[2016-11-30] MEDS: CHOLECALCIFEROL (VIT D3) 1000 UNIT TAB PO SCH (08:52)
[2016-11-30] MEDS: GABAPENTIN 400 MG CAP PO SCH ×3 (08:52→18:30)
[2016-11-30] MEDS: GABAPENTIN 100 MG CAP PO SCH ×3 (08:52→18:29)
[2016-11-30] MEDS: DOCUSATE SODIUM 100 MG CAP PO SCH ×3 (08:52→20:02)
[2016-11-30] MEDS: levETIRAcetam 500 MG TAB PO SCH ×2 (08:53→19:59)
[2016-11-30] MEDS: SODIUM CHLORIDE 0.9% FLUSH 5 ML FLUSH FLUSH SCH ×2 (09:00→19:58)
--- NOTE | 2016-11-30 10:08 | HHI.PR ---
Subjective Remarks Follow up for ESBL+ UTI, seizures. The patient reports no further seizure activity, no spasms/twitching. No fevers/chills. Denies dysuria but does have increased urinary frequency. No abdominal pain. She did have an episode of nausea/vomiting during BM yesterday. Telemetry reviewed, patient had a 4 second pause last night, with persistent bradycardia, HR into the 40s at times. Objective Vitals Vital Signs Date Time Temp Pulse Resp B/P Pulse Ox O2 Delivery O2 Flow Rate FiO2 11/30/16 08:10 98.2 79 18 107/63 97 11/30/16 04:08 98.0 64 19 113/61 94 11/29/16 22:31 98.2 72 19 110/55 95 11/29/16 20:00 80 11/29/16 16:25 97.8 76 18 108/57 98 11/29/16 12:51 73 18 119/57 96 I/O 11/29/16 11/29/16 11/29/16 11/30/16 11/30/16 11/30/16 07:00 15:00 23:00 07:00 15:00 23:00 Intake Total 650 ml Balance 650 ml Intake Oral 600 ml IV Total 50 ml # Voids 2 4 # Bowel Movements 0 Result Diagram: 11/27/1671111/27/16711 Imaging Last Impressions Cervical Spine MRI 11/27/16 0000 Signed Impressions: Service Date/Time: November 20:01 - CONCLUSION: 1. No acute bony abnormality. No cord compression or cord edema. Degenerative disc disease in the lower cervical spine most prominent at C5-6 with effacement of the thecal sac around the cord and moderate bilateral neural foraminal stenosis. Subcentimeter perineural cysts bilaterally at C6-7. Raad Mena MD Head CT 11/26/16 115 Signed Impressions: Service Date/Time: Saturday, November 26, 2016 12:28 - CONCLUSION: Negative for an acute process. oLs Shen MD FACR Chest X-Ray 11/26/161152 Signed Impressions: Service Date/Time: Saturday, November 26, 2016 11:52 - CONCLUSION: No acute disease. Los Shen MD FACR Carotid Artery Ultrasound 11/26/16 0000 Signed Impressions: Service Date/Time: Saturday, November 26, 2016 15:22 - CONCLUSION: No hemodynamically significant stenosis. Conrado Hernandez MD Brain MRI 11/26/16 0000 Signed Impressions: Service Date/Time: Saturday, November 26, 2016 19:03 - CONCLUSION: Normal examination for a patient of this age. Raad Mena MD Objective Remarks GENERAL: Well-developed well-nourished pleasant female patient in [facility]. SKIN: Warm and dry. HEAD: Atraumatic. Normocephalic. EYES: Pupils equal and round. No scleral icterus. No injection or drainage. ENT: No nasal bleeding or discharge. Mucous membranes pink and moist. NECK: Trachea midline. CARDIOVASCULAR: Bradycardic, regular rhythm. No murmur appreciated. RESPIRATORY: No accessory muscle use. Clear to auscultation. Breath sounds equal bilaterally. GASTROINTESTINAL: Abdomen soft, non-tender, nondistended. Normoactive bowel sounds x4. MUSCULOSKELETAL: Extremities without clubbing, cyanosis, or edema. No obvious deformities. NEUROLOGICAL: Awake and alert. No obvious cranial nerve deficits. Motor grossly within normal limits. 5/5 muscle strength in the arms and legs. Normal speech. PSYCHIATRIC: Appropriate mood and affect; insight and judgment normal. Medications and IVs Current Medications Medications (Trade) Dose Ordered Sig/Eneida Route Start Time Stop Time Status Last Admin (NS Flush) 2 ml UNSCH PRN FLUSH 11/26/16 14:00 (NS Flush) 2 ml BID FLUSH 11/26/16 21:00 11/28/16 20:10 (Tylenol) 650 mg Q4H PRN PO 11/26/16 14:00 (Zofran Inj) 4 mg Q6H PRN IVP 11/26/16 14:00 (Compazine Supp) 25 mg Q12H PRN ME 11/26/16 14:00 (Dulcolax Supp) 10 mg DAILY PRN ME 11/26/16 14:00 11/29/16 20:15 (Senokot) 17.2 mg Q12H PRN PO 11/26/16 14:00 11/29/16 05:21 (Lovenox Inj) 40 mg Q24H SQ 11/26/16 14:00 11/29/16 14:55 (Keppra) 500 mg BID PO 11/26/16 21:00 11/30/16 08:53 (Synthroid) 112 mcg DAILY@06 PO 11/27/16 06:00 11/30/16 06:05 Non-Formulary Medication 35 mg TID PO 11/26/16 18:00 Hold (Aspirin Chew) 81 mg DAILY PO 11/27/16 09:00 11/30/16 08:51 (Lipitor) 10 mg HS PO 11/26/16 21:00 11/29/16 20:14 (Glucagon Inj) 1 mg UNSCH PRN OTHER 11/26/16 14:00 (Flexeril) 5 mg Q8H PRN PO 11/27/16 13:15 11/27/16 13:15 (Ativan) 0.5 mg Q6H PRN PO 11/27/16 13:15 11/29/16 18:37 (Pill Splitter) 1 ea UNSCH PRN OTHER 11/27/16 13:15 (Vitamin D3) 1,000 units DAILY PO 11/28/16 13:00 11/30/16 08:52 (Colace) 100 mg BID PO 11/29/16 09:00 11/29/16 20:14 (Neurontin) 400 mg TID PO 11/29/16 09:00 11/30/16 08:52 Gabapentin 100 mg 100 mg TID PO 11/29/16 09:00 11/30/16 08:52 (INVanz INJ/NS Inj) 100 ml @ 200 mls/hr Q24H IV 11/29/16 17:00 11/29/16 18:22 Urinary Catheter: No Vascular Central Line Catheter: No A/P Assessment and Plan 66-year-old female with history of seizure, hypothyroidism, arthritis, presents with acute onset of left sided weakness and aphasia. Acute neurological deficits. Left Sided Weakness, aphasia, muscle spasms. Etiologies include TIA/CVA versus seizure versus other. Images/labs reviewed: Head CT unremarkable. TSH and B12 wnl. Vitamin D low. LDL 124. Brain MRI normal. Carotid ultrasound no significant stenosis. C- spine MRI with no acute process, degenerative disc disease in the lower cervical spine with moderate bilateral neuroforaminal stenosis. EEG abnormal, nonspecific, possibly epileptiform. Echocardiogram with normal systolic function and EF. Hgb A1c 5.4. -NIHSS, neuro checks, monitor on telemetry. -PT/OT/ST. -holter monitor. -Started aspirin 81mg. -Consulted neurology, appreciate input from Dr. Mixon -Continue Keppra, gabapentin increased -Started Flexeril prn for spasms and also started Ativan as needed, as patient gets anxious. Seizure disorder: patient with hx of seizure in 2014, Follows with neurologist Dr. Raad Ng. As above, appreciate neurology recommendations. Received IV Keppra bolus. Continue Keppra 500 mg twice a day and gabapentin 500 mg 3 times a day. UTI, ESBL+: Patient symptomatic with recent increased urinary frequency/ incontinence, occasional dysuria. Was on IV Rocephin, however urine culture with Escherichia coli ESBL. Consulted ID, Dr. Mendoza recommended repeating urine culture and following up for further ID antibiotic recommendations if any are needed. Repeat culture currently with gram negative rods. Continue IV Ertapenem. Bradycardia with 4 second pause: seen on telemetry, patient asymptomatic, was sleeping during pause. Check Holter Monitor. Consider cardiology consult. Hypothyroidism: chronic, TSH wnl, continue patient's levothyroxine. Constipation: Start Colace scheduled. Continue sennosides as needed. Had BM yesterday 11/29. DVT Prophylaxis: teds/SCDs, Lovenox Written by Eve Fishman, acting as scribe for Dr. Campbell on 11/30/16 at 10:05. The documentation accurately reflects the work performed [id number] by me Dr. Campbell on 11/30/16 at 10:05. Eve Fishman PA-C Nov 30, 2016 10:08 Ivy Campbell MD Nov 30, 2016 17:45
[2016-11-30] MEDS: ENOXAPARIN SODIUM 40 MG/0.4 ML SYRINGE SQ SCH (14:39)
[2016-11-30] MEDS: ERTAPENEM INJ 1,000 MG in SODIUM CHLORIDE 0.9% INJ 100 ML IV SCH (18:23)
[2016-11-30] MEDS: ATORVASTATIN 10 MG TAB PO SCH (19:59)
[2016-12-01 04:26] VITALS: BP 132/64; PULSE 67; RESP 18; TEMP 98.3; O2SAT 96
[2016-12-01] MEDS: LEVOTHYROXINE SODIUM 112 MCG TAB PO SCH (05:23)
[2016-12-01 08:27] VITALS: BP 123/54; PULSE 64; RESP 14; TEMP 97.7; O2SAT 97
[2016-12-01] MEDS: DOCUSATE SODIUM 100 MG CAP PO SCH (09:00)
[2016-12-01] MEDS: ASPIRIN 81 MG CHEW TAB PO SCH (09:00)
[2016-12-01] MEDS: GABAPENTIN 400 MG CAP PO SCH ×2 (09:00→14:56)
[2016-12-01] MEDS: SODIUM CHLORIDE 0.9% FLUSH 5 ML FLUSH FLUSH SCH (09:00)
[2016-12-01] MEDS: GABAPENTIN 100 MG CAP PO SCH ×2 (09:00→14:56)
[2016-12-01] MEDS: levETIRAcetam 500 MG TAB PO SCH (09:00)
[2016-12-01] MEDS: CHOLECALCIFEROL (VIT D3) 1000 UNIT TAB PO SCH (09:57)
[2016-12-01] MEDS ORDERED: INVA1INJ IV (11:15)
[2016-12-01] MEDS ORDERED: EPIN1INJ21 IV PUSH (11:15)
[2016-12-01] MEDS ORDERED: SOLU250I IV PUSH (11:15)
[2016-12-01] MEDS ORDERED: EPIN1INJ21 SQ (11:15)
--- NOTE | 2016-12-01 11:18 | HHI.FF ---
Infusion Therapy Location of Infusion Therapy: Ambulatory Infusion Therapy Order Patient Information Appointment Date: Dec 01, 2016 Patient Weight 85 kg Diagnosis: Diagnosis ESBL E.coli UTI Coded Allergies: *MDRO Multi-Drug Resistant Organism (Verified Adverse Reaction, Unknown, ) ESBL E. coli (urine) - 11/26/16 Administer Medication Ertapenem 1 gram IV q 24 hours Start Treatment: Dec 01, 2016 Stop Treatment: Dec 06, 2016 Additional Information Venous access: Peripheral, Other (may use Midline if required.) Additional Instructions [x] Peripheral flush and dressing changes per protocol [x] Implanted port and central sewer line photo inspector: * Implanted port: 10 ml Normal Saline followed by 5 ml Heparin 100 units/ml Heparin flush after each use and monthly to maintain. [] May leave port accessed during therapy. [] May leave peripheral site accessed for duration of therapy. [x] If patient has SOB or respiratory distress, check oxygen saturation. If less than 90% or clinical signs of respiratory distress, administer oxygen at 2 L/min. via nasal cannula and notify physician. [x] Anaphylaxis/Reaction orders: * Stop infusion. * Keep IV line open with saline flush. * Notify physician. * Monitor vital signs every 15 minutes until symptoms resolve. * Check Oxygen saturation; Oxygen at 2 L/min. via nasal cannula if less than 90% or clinical signs of respiratory distress. * Administer diphenhydramine (Benadryl) 25 mg IV STAT, (unless patient has received as pre-med). May repeat once, if necessary. * Solu-Cortef 250 mg IVP over 30-60 seconds, use 100 mg vials for each dissolution. * Epinephrine (1mg/1 ml) 0.3 mg subcutaneously or IVP now with any signs of respiratory distress. * Check with physician for new additional pre-med orders if patient is re- challenged or re-treated. [x] May remove PICC line when treatment complete, after confirming with Physician. [x] If the patient is admitted to the hospital, the ED, or transferred via [facility] , complete transfer form including medication reconciliation order sheet. Shonda Mendoza MD Dec 01, 2016 11:18
--- NOTE | 2016-12-01 11:24 | HHI.IDPN ---
Subjective Subjective Remarks 66 y/o WF admitted with neurological complaints found to have UA/clx c/w UTI She grew out ESBL + org admits some vague urinary complaints afebrile No urinary complaints. No diarrhea No seizures. Antibiotics Ertapenem IV Lines Line sites with no e/o infection. Past Medical History reviewed. Allergies: Coded Allergies: *MDRO Multi-Drug Resistant Organism (Verified Adverse Reaction, Unknown, ) ESBL E. coli (urine) - 11/26/16 Objective . Vital Signs Date Time Temp Pulse Resp B/P Pulse Ox O2 Delivery O2 Flow Rate FiO2 12/01/16 08:27 97.7 64 14 123/54 97 12/01/16 04:26 98.3 67 18 132/64 96 11/30/16 23:28 98.3 67 18 118/52 96 11/30/16 20:00 73 11/30/16 19:52 98.3 72 18 133/64 93 11/30/16 16:56 97.5 72 18 111/51 97 11/30/16 12:57 71 18 103/51 95 11/30/16 11/30/16 12/01/16 15:00 23:00 07:00 Intake Total 500 ml Balance 500 ml Intake Oral 400 ml IV Total 100 ml # Voids 5 . Microbiology Date/Time Procedure Status Source Growth 11/28/16 13:35 Urine Culture - Final Complete Urine Clean Catch Escherichia Coli Esbl Positive 11/28/16 13:50 Aerobic Blood Culture - Preliminary Resulted Blood Peripheral NO GROWTH IN 3 DAYS 11/28/16 13:50 Anaerobic Blood Culture - Preliminary Resulted Blood Peripheral NO GROWTH IN 3 DAYS 11/28/16 13:58 Aerobic Blood Culture - Preliminary Resulted Blood Peripheral NO GROWTH IN 3 DAYS 11/28/16 13:58 Anaerobic Blood Culture - Preliminary Resulted Blood Peripheral NO GROWTH IN 3 DAYS Imaging Last Impressions Cervical Spine MRI 11/27/16 0000 Signed Impressions: Service Date/Time: November 20:01 - CONCLUSION: 1. No acute bony abnormality. No cord compression or cord edema. Degenerative disc disease in the lower cervical spine most prominent at C5-6 with effacement of the thecal sac around the cord and moderate bilateral neural foraminal stenosis. Subcentimeter perineural cysts bilaterally at C6-7. Raad Mena MD Head CT 11/26/16 1153 Signed Impressions: Service Date/Time: Saturday, November 26, 2016 12:28 - CONCLUSION: Negative for an acute process. Los Shen MD FACR Chest X-Ray 11/26/16 1153 Signed Impressions: Service Date/Time: Saturday, November 26, 2016 11:52 - CONCLUSION: No acute disease. Los Shen MD FACR Carotid Artery Ultrasound 11/26/16 0000 Signed Impressions: Service Date/Time: Saturday, November 26, 2016 15:22 - CONCLUSION: No hemodynamically significant stenosis. Conrado Hernandez MD Brain MRI 11/26/16 0000 Signed Impressions: Service Date/Time: Saturday, November 26, 2016 19:03 - CONCLUSION: Normal examination for a patient of this age. Raad Mena MD Physical Exam GENERAL: Obese CF patient, in no apparent distress. SKIN: No rashes. EYES: Pupils equal round and reactive. Extraocular motions intact. No scleral icterus. No injection or drainage. ENT: Throat without erythema, moist mucosae CARDIOVASCULAR: HS audible. No murmur appreciated. RESPIRATORY: Clear to auscultation. Breath sounds equal bilaterally. No wheezes , rales, or rhonchi. GASTROINTESTINAL: Abdomen soft, non-tender, nondistended. Obese. MUSCULOSKELETAL: No pedal edema. Right hip prior surgical scar intact. Bilateral knee surgical scars intact with no e/o infection. NEUROLOGICAL: Awake and alert. Grossly non focal Psych: cooperative, but emotionally labile, cries easily IV line sites with no e/o infection. Assessment & Plan Remarks ESBL in urine ? ESBL E.coli UTI present on admission. recurrent UTI prior antibiotic exposures. Recently treated with penicillin for cold. Seizure on presentation. EEG abnormal. Dose increased by neurologist. Recs: Continue Ertapenem IV Check CBC and Cr today. Prefer to DC on peripheral IV but ok to place Midline if need be. Orders in chart. d/w case management and primary team. Will sign off please call back if any change in clinical condition. Shonda Mendoza MD Dec 01, 2016 11:24
--- NOTE | 2016-12-01 11:28 | HHI.PR ---
Review/Management Daily Summary sleepy this evening occasional left sided spasming eeg reviewed, no obvious seizures to explain spasming, not a tia either will mri her c spine and increase gabapentin dosage, keep keppra as is 12/01 doing well neuro beckett no seizure recurrence she now tells aby she was taking keppra 500 mg bid will make keppra 750 bid home whenevr ready medically, being treated for e coli Subjective Subjective Comments No acute events reported No headache No chest pain No dyspnea Active Medications Current Medications Medications (Trade) Dose Ordered Sig/Eneida Route Start Time Stop Time Status Last Admin (NS Flush) 2 ml UNSCH PRN FLUSH 11/26/16 14:00 (NS Flush) 2 ml BID FLUSH 11/26/16 21:00 12/01/16 09:00 (Tylenol) 650 mg Q4H PRN PO 11/26/16 14:00 (Zofran Inj) 4 mg Q6H PRN IVP 11/26/16 14:00 (Compazine Supp) 25 mg Q12H PRN CO 11/26/16 14:00 (Dulcolax Supp) 10 mg DAILY PRN CO 11/26/16 14:00 11/29/16 20:15 (Senokot) 17.2 mg Q12H PRN PO 11/26/16 14:00 11/29/16 05:21 (Lovenox Inj) 40 mg Q24H SQ 11/26/16 14:00 11/30/16 14:39 (Keppra) 500 mg BID PO 11/26/16 21:00 12/01/16 09:00 (Synthroid) 112 mcg DAILY@06 PO 11/27/16 06:00 12/01/16 05:23 Non-Formulary Medication 35 mg TID PO 11/26/16 18:00 Hold (Aspirin Chew) 81 mg DAILY PO 11/27/16 09:00 12/01/16 09:00 (Lipitor) 10 mg HS PO 11/26/16 21:00 11/30/16 19:59 (Glucagon Inj) 1 mg UNSCH PRN OTHER 11/26/16 14:00 (Flexeril) 5 mg Q8H PRN PO 11/27/16 13:15 11/27/16 13:15 (Ativan) 0.5 mg Q6H PRN PO 11/27/16 13:15 11/29/16 18:37 (Pill Splitter) 1 ea UNSCH PRN OTHER 11/27/16 13:15 (Vitamin D3) 1,000 units DAILY PO 11/28/16 13:00 12/01/16 09:57 (Colace) 100 mg BID PO 11/29/16 09:00 12/01/16 09:00 (Neurontin) 400 mg TID PO 11/29/16 09:00 12/01/16 09:00 Gabapentin 100 mg 100 mg TID PO 11/29/16 09:00 12/01/16 09:00 (INVanz INJ/NS Inj) 100 ml @ 200 mls/hr Q24H IV 11/29/16 17:00 11/30/16 18:23 Allergies Allergies Coded Allergies *MDRO Multi-Drug Resistant Organism (Verified Adverse Reaction, Unknown, ) Exam I&O / VS 11/30/16 11/30/16 12/01/16 15:00 23:00 07:00 Intake Total 500 ml Balance 500 ml Intake Oral 400 ml IV Total 100 ml # Voids 5 Vital Signs Date Time Temp Pulse Resp B/P Pulse Ox O2 Delivery O2 Flow Rate FiO2 12/01/16 08:27 97.7 64 14 123/54 97 12/01/16 04:26 98.3 67 18 132/64 96 11/30/16 23:28 98.3 67 18 118/52 96 11/30/16 20:00 73 11/30/16 19:52 98.3 72 18 133/64 93 11/30/16 16:56 97.5 72 18 111/51 97 11/30/16 12:57 71 18 103/51 95 Objective Micro and Labs Date/Time Procedure Status Source Growth 11/28/16 13:58 Aerobic Blood Culture - Preliminary Resulted Blood Peripheral NO GROWTH IN 3 DAYS 11/28/16 13:58 Anaerobic Blood Culture - Preliminary Resulted Blood Peripheral NO GROWTH IN 3 DAYS 11/28/16 13:35 Urine Culture - Final Complete Urine Clean Catch Escherichia Coli Esbl Positive Jann Mixon MD Dec 01, 2016 11:28
--- NOTE | 2016-12-01 11:35 | HHI.PR ---
Subjective Remarks Follow up for ESBL+ UTI, seizures. No further seizure activity. Denies any abdominal pain, suprapubic pain, dysuria, fevers/chills. Tolerating oral intake. She wants to go home. Awaiting outpatient antibiotic infusion arrangements. Discussed with Dr. Mendoza, case management, and RN. Objective Vitals Vital Signs Date Time Temp Pulse Resp B/P Pulse Ox O2 Delivery O2 Flow Rate FiO2 12/01/16 08:27 97.7 64 14 123/54 97 12/01/16 04:26 98.3 67 18 132/64 96 11/30/16 23:28 98.3 67 18 118/52 96 11/30/16 20:00 73 11/30/16 19:52 98.3 72 18 133/64 93 11/30/16 16:56 97.5 72 18 111/51 97 11/30/16 12:57 71 18 103/51 95 I/O 11/30/16 11/30/16 11/30/16 12/01/16 12/01/16 12/01/16 07:00 15:00 23:00 07:00 15:00 23:00 Intake Total 500 ml Balance 500 ml Intake Oral 400 ml IV Total 100 ml # Voids 5 Result Diagram: 11/27/1671111/27/16711 Imaging Last Impressions Cervical Spine MRI 11/27/16 0000 Signed Impressions: Service Date/Time: November 20:01 - CONCLUSION: 1. No acute bony abnormality. No cord compression or cord edema. Degenerative disc disease in the lower cervical spine most prominent at C5-6 with effacement of the thecal sac around the cord and moderate bilateral neural foraminal stenosis. Subcentimeter perineural cysts bilaterally at C6-7. Raad Mena MD Head CT 11/26/161152 Signed Impressions: Service Date/Time: Saturday, November 26, 2016 12:28 - CONCLUSION: Negative for an acute process. Los Shen MD FACR Chest X-Ray 11/26/161152 Signed Impressions: Service Date/Time: Saturday, November 26, 2016 11:52 - CONCLUSION: No acute disease. Los Shen MD FACR Carotid Artery Ultrasound 11/26/16 0000 Signed Impressions: Service Date/Time: Saturday, November 26, 2016 15:22 - CONCLUSION: No hemodynamically significant stenosis. Conrado Hernandez MD Brain MRI 11/26/16 0000 Signed Impressions: Service Date/Time: Saturday, November 26, 2016 19:03 - CONCLUSION: Normal examination for a patient of this age. Raad Mena MD Objective Remarks GENERAL: Well-developed well-nourished pleasant female patient in [facility]. SKIN: Warm and dry. HEENT: Atraumatic. Normocephalic. Pupils equal and round. No scleral icterus. No injection or drainage. Mucous membranes pink and moist. NECK: Trachea midline. CARDIOVASCULAR: Bradycardic, regular rhythm. No murmur appreciated. RESPIRATORY: No accessory muscle use. Clear to auscultation. Breath sounds equal bilaterally. GASTROINTESTINAL: Abdomen soft, non-tender, nondistended. Normoactive bowel sounds x4. MUSCULOSKELETAL: Extremities without clubbing, cyanosis, or edema. No obvious deformities. NEUROLOGICAL: Awake and alert. No obvious cranial nerve deficits. Motor grossly within normal limits. 5/5 muscle strength in the arms and legs. Normal speech. PSYCHIATRIC: Appropriate mood and affect; insight and judgment normal. Medications and IVs Current Medications Medications (Trade) Dose Ordered Sig/Eneida Route Start Time Stop Time Status Last Admin (NS Flush) 2 ml UNSCH PRN FLUSH 11/26/16 14:00 (NS Flush) 2 ml BID FLUSH 11/26/16 21:00 12/01/16 09:00 (Tylenol) 650 mg Q4H PRN PO 11/26/16 14:00 (Zofran Inj) 4 mg Q6H PRN IVP 11/26/16 14:00 (Compazine Supp) 25 mg Q12H PRN NM 11/26/16 14:00 (Dulcolax Supp) 10 mg DAILY PRN NM 11/26/16 14:00 11/29/16 20:15 (Senokot) 17.2 mg Q12H PRN PO 11/26/16 14:00 11/29/16 05:21 (Lovenox Inj) 40 mg Q24H SQ 11/26/16 14:00 11/30/16 14:39 (Keppra) 500 mg BID PO 11/26/16 21:00 12/01/16 09:00 (Synthroid) 112 mcg DAILY@06 PO 11/27/16 06:00 12/01/16 05:23 Non-Formulary Medication 35 mg TID PO 11/26/16 18:00 Hold (Aspirin Chew) 81 mg DAILY PO 11/27/16 09:00 12/01/16 09:00 (Lipitor) 10 mg HS PO 11/26/16 21:00 11/30/16 19:59 (Glucagon Inj) 1 mg UNSCH PRN OTHER 11/26/16 14:00 (Flexeril) 5 mg Q8H PRN PO 11/27/16 13:15 11/27/16 13:15 (Ativan) 0.5 mg Q6H PRN PO 11/27/16 13:15 11/29/16 18:37 (Pill Splitter) 1 ea UNSCH PRN OTHER 11/27/16 13:15 (Vitamin D3) 1,000 units DAILY PO 11/28/16 13:00 12/01/16 09:57 (Colace) 100 mg BID PO 11/29/16 09:00 12/01/16 09:00 (Neurontin) 400 mg TID PO 11/29/16 09:00 12/01/16 09:00 Gabapentin 100 mg 100 mg TID PO 11/29/16 09:00 12/01/16 09:00 (INVanz INJ/NS Inj) 100 ml @ 200 mls/hr Q24H IV 11/29/16 17:00 11/30/16 18:23 Urinary Catheter: No A/P Assessment and Plan 66-year-old female with history of seizure, hypothyroidism, arthritis, presents with acute onset of left sided weakness and aphasia. Acute neurological deficits. Left Sided Weakness, aphasia, muscle spasms. Etiologies include TIA/CVA versus seizure versus other. Images/labs reviewed: Head CT unremarkable. TSH and B12 wnl. Vitamin D low. LDL 124. Brain MRI normal. Carotid ultrasound no significant stenosis. C- spine MRI with no acute process, degenerative disc disease in the lower cervical spine with moderate bilateral neuroforaminal stenosis. EEG abnormal, nonspecific, possibly epileptiform. Echocardiogram with normal systolic function and EF. Hgb A1c 5.4. -NIHSS, neuro checks, monitor on telemetry. -PT/OT/ST. -holter monitor unremarkable, very infrequent PVC/PAC -Started aspirin 81mg. -Consulted neurology, appreciate input from Dr. Mixon -Continue Keppra at increased dose of 750mg bid, gabapentin increased to 500mg tid -Started Flexeril prn for spasms and also started Ativan as needed, as patient gets anxious. -no further episodes since prior to arrival. Seizure disorder: patient with hx of seizure in 2014, Follows with neurologist Dr. Raad Ng. As above, appreciate neurology recommendations. Received IV Keppra bolus. Increased patient's Keppra dose from 500mg bid to 750mg bid and gabapentin 500 mg tid. UTI with E.Coli ESBL+: Patient symptomatic with recent increased urinary frequency/incontinence, occasional dysuria. Was on IV Rocephin, however urine culture with Escherichia coli ESBL. Consulted ID, Dr. Mendoza recommended repeating urine culture which again showed ESBL. Discussed with Dr. Mendoza, plan for patient to received IV Ertapenem 1gm q24h at the infusion center, stop date 12/06. Case management to arrange. Will place midline if arranged. Discussed with RN. Bradycardia with 4 second pause: seen on telemetry, patient asymptomatic, was sleeping during pause. Initial Holter Monitor unremarkable, repeat Holter in place however no further events on telemetry. Hypothyroidism: chronic, TSH wnl, continue patient's levothyroxine. Constipation: Start Colace scheduled. Continue sennosides as needed. Having normal BMs now. DVT Prophylaxis: teds/SCDs, Lovenox Written by Eve Fishman, acting as scribe for Dr. Campbell on 12/01/16 at 12:15 The documentation accurately reflects the work performed [id number] by me Dr. Campbell on 12/01/16 at 12:15 Discharge Planning Possible discharge today after outpatient IV abx infusion arranged. See discharge summary. Eve Fishman PA-C Dec 01, 2016 11:35 Ivy Campbell MD Dec 01, 2016 14:34
[2016-12-01 12:14] VITALS: BP 120/58; PULSE 71; RESP 16; TEMP 97; O2SAT 96
[2016-12-01] MEDS ORDERED: GABA100C4 PO (12:48)
[2016-12-01] MEDS ORDERED: Aspirin Chew PO (12:48)
[2016-12-01] MEDS ORDERED: LEVE250 PO (12:48)
[2016-12-01] MEDS ORDERED: NEUR400C PO (12:48)
--- NOTE | 2016-12-01 12:49 | HHI.DCPOC ---
Discharge Care Plan Diagnosis: (1) TIA (transient ischemic attack) (2) Seizure (3) UTI due to extended-spectrum beta lactamase (ESBL) producing Escherichia coli Goals to Promote Your Health * To prevent worsening of your condition and complications * To maintain your health at the optimal level Directions to Meet Your Goals Take your medications as prescribed Follow your dietary instruction Follow activity as directed Keep your appointments as scheduled Take your immunizations and boosters as scheduled If your symptoms worsen call your PCP, if no PCP go to Urgent Care Center or Emergency Room Smoking is Dangerous to Your Health. Avoid second hand smoke Call the 24-hour hour crisis hotline for domestic abuse at Eve Fishman PA-C Dec 01, 2016 12:49 Ivy Campbell MD Dec 02, 2016 15:52
--- NOTE | 2016-12-01 12:56 | HHI.DS ---
Discharge Summary Admission Date Nov 26, 2016 Discharge Date: Dec 01, 2016 Admitting Diagnosis TIA vs Seizure (1) UTI due to extended-spectrum beta lactamase (ESBL) producing Escherichia coli ICD Code: N39.0 Diagnosis: Principal (2) TIA (transient ischemic attack) ICD Code: G45.9 Diagnosis: Principal (3) Seizure ICD Code: R56.9 Diagnosis: Principal Procedures None. Brief History - From Admission 66-year-old female with history of seizure, hypothyroidism, arthritis, presents with acute onset of left sided weakness and aphasia. The patient's is at bedside who assists with the history. He states 2.5hrs prior to coming to the hospital, the patient had an episode of aphasia, with some drooling, and diffuse left upper and lower extremity weakness. The patient was very tearful during the episode because of the intense pain. The patient reports recently her left hand has been having episodes of spasms, however today it was much more severe and included the left lower extremity which she described as "turning inward". She states this lasted over 2 hours and was very painful. By the time they arrived to the ER, most of the symptoms resolved however still with left hand and leg spasms and associated weakness. She also reports a diffuse frontal headache that didn't start until she arrived to the ER which she believes is related to all the crying. She denies any changes in vision. She does report recent unsteady gait, poor balance, and is constantly running into things while she's walking. The patient reports she had a similar episode in 2014 with left arm/leg weakness, went to the hospital because she thought she was having a stroke however there was no evidence of stroke, EEG was abnormal, and she has been on Keppra 300mg bid ever since. Follows with neurologist Dr. Raad Ng. Recent EEG showed "evidence of possible cortical irritability seen bilaterally but in an independent fashion suggesting multiple areas that could represent an epileptic foci". Currently the patient is seen in the ER, aphasia resolved, however patient still with contracture of LUE and diffuse left sided weakness. UA positive for UTI, the patient does report recent increased urinary frequency/incontinence, occasional dysuria, denies fevers/chills or abdominal pain/nausea/vomiting. CBC/BMP: 11/27/16 0712 11/27/16 0712 Significant Findings Laboratory Tests Test 11/28/16 13:35 Urine Leukocyte Esterase LARGE (NEG) Urine WBC 16 /hpf (0-5) Urine Bacteria RARE /hpf (NONE) Imaging Last Impressions Cervical Spine MRI 11/27/16 0000 Signed Impressions: Service Date/Time: November 20:01 - CONCLUSION: 1. No acute bony abnormality. No cord compression or cord edema. Degenerative disc disease in the lower cervical spine most prominent at C5-6 with effacement of the thecal sac around the cord and moderate bilateral neural foraminal stenosis. Subcentimeter perineural cysts bilaterally at C6-7. Raad Mena MD Head CT 11/26/16 1153 Signed Impressions: Service Date/Time: Saturday, November 26, 2016 12:28 - CONCLUSION: Negative for an acute process. Los Shen MD FACR Chest X-Ray 11/26/16 1153 Signed Impressions: Service Date/Time: Saturday, November 26, 2016 11:52 - CONCLUSION: No acute disease. Los Shen MD FACR Carotid Artery Ultrasound 11/26/16 0000 Signed Impressions: Service Date/Time: Saturday, November 26, 2016 15:22 - CONCLUSION: No hemodynamically significant stenosis. Conrado Hernandez MD Brain MRI 11/26/16 0000 Signed Impressions: Service Date/Time: Saturday, November 26, 2016 19:03 - CONCLUSION: Normal examination for a patient of this age. Raad Mena MD PE at Discharge GENERAL: Well-developed well-nourished pleasant female patient in [facility]. SKIN: Warm and dry. HEENT: Atraumatic. Normocephalic. Pupils equal and round. No scleral icterus. No injection or drainage. Mucous membranes pink and moist. NECK: Trachea midline. CARDIOVASCULAR: Bradycardic, regular rhythm. No murmur appreciated. RESPIRATORY: No accessory muscle use. Clear to auscultation. Breath sounds equal bilaterally. GASTROINTESTINAL: Abdomen soft, non-tender, nondistended. Normoactive bowel sounds x4. MUSCULOSKELETAL: Extremities without clubbing, cyanosis, or edema. No obvious deformities. NEUROLOGICAL: Awake and alert. No obvious cranial nerve deficits. Motor grossly within normal limits. 5/5 muscle strength in the arms and legs. Normal speech. PSYCHIATRIC: Appropriate mood and affect; insight and judgment normal. Hospital Course 66-year-old female with history of seizure, hypothyroidism, arthritis, presents with acute onset of left sided weakness and aphasia. Acute neurological deficits. Left Sided Weakness, aphasia, muscle spasms. Etiologies include TIA/CVA versus seizure versus other. Images/labs reviewed: Head CT unremarkable. TSH and B12 wnl. Vitamin D low. LDL 124. Brain MRI normal. Carotid ultrasound no significant stenosis. C- spine MRI with no acute process, degenerative disc disease in the lower cervical spine with moderate bilateral neuroforaminal stenosis. EEG abnormal, nonspecific, possibly epileptiform. Echocardiogram with normal systolic function and EF. Hgb A1c 5.4. -NIHSS, neuro checks, monitor on telemetry. -PT/OT/ST. -holter monitor unremarkable, very infrequent PVC/PAC -Started aspirin 81mg. -Consulted neurology, appreciate input from Dr. Mixon -Continue Keppra at increased dose of 750mg bid, gabapentin increased to 500mg tid -Started Flexeril prn for spasms and also started Ativan as needed, as patient gets anxious. -no further episodes since prior to arrival. Seizure disorder: patient with hx of seizure in 2014, Follows with neurologist Dr. Raad Ng. As above, appreciate neurology recommendations. Received IV Keppra bolus. Increased patient's Keppra dose from 500mg bid to 750mg bid and gabapentin 500 mg tid. UTI with E.Coli ESBL+: Patient symptomatic with recent increased urinary frequency/incontinence, occasional dysuria. Was on IV Rocephin, however urine culture with Escherichia coli ESBL. Consulted ID, Dr. Mendoza recommended repeating urine culture which again showed ESBL. Discussed with Dr. Mendoza, plan for patient to received IV Ertapenem 1gm q24h at the infusion center, stop date 12/06. Case management to arrange. Will place midline if arranged. Discussed with RN. Bradycardia with 4 second pause: seen on telemetry, patient asymptomatic, was sleeping during pause. Initial Holter Monitor unremarkable, repeat Holter in place however no further events on telemetry. Hypothyroidism: chronic, TSH wnl, continue patient's levothyroxine. Constipation: Start Colace scheduled. Continue sennosides as needed. Having normal BMs now. DVT Prophylaxis: teds/SCDs, Lovenox Written by Eve Fishman, acting as scribe for Dr. Campbell on 12/01/16 at 12:15 The documentation accurately reflects the work performed [id number] by me Dr. Campbell on 12/01/16 at 12:15 Pt Condition on Discharge: Stable Discharge Disposition: Discharge Home Discharge Time: > 30 minutes Discharge Instructions DIET: Follow Instructions for: As Tolerated, No Restrictions Activities you can perform: Regular-No Restrictions Follow up Referrals: Neurology - 1 Week with Jann Mixon MD PCP Follow-up - 1 Week New Medications: Epinephrine Inj (Epinephrine Inj) 1 Mg/Ml Inj 0.3 MG IV PUSH ONCE PRN ALLERGIC REACTION #1 VIAL Epinephrine Inj (Epinephrine Inj) 1 Mg/Ml Inj 0.3 MG SQ ONCE Give with any signs of respiratory distress. PRN ALLERGIC REACTION #1 VIAL Ertapenem Inj (Invanz Inj) 1 Gm Addvial 1 GM IV DAILY ESBL UTI Days 5 Ref 0 BAG Hydrocortisone Inj (Solu-Cortef Inj) 250 Mg Inj 250 MG IV PUSH ONCE Give over 30-60 seconds. PRN ALLERGIC REACTION #1 Ref 0 VIAL Gabapentin (Neurontin) 400 Mg Cap 400 MG PO TID neuropathy #90 CAP Gabapentin (Gabapentin) 100 Mg Cap 100 MG PO TID neuropathy #90 CAP Levetiracetam (Keppra) 250 Mg Tab 750 MG PO BID Control Seizures #180 TAB ([Aspirin Chew]) 81 MG CHEW 81 MG PO DAILY Prevent Blood Clot #30 TAB.CHEW Continued Medications: Diclofenac (Zorvolex) 35 Mg Cap 35 MG PO TID Pain Management Ref 0 CAP Levothyroxine (Levothyroxine) 112 Mcg Tab 112 MCG PO DAILY Thyroid #30 Ref 0 TAB Discontinued Medications: Gabapentin (Gabapentin) 300 Mg Cap 300 MG PO TID #90 Ref 0 CAP Levetiracetam (Keppra) 500 Mg Tab 300 MG PO BID Control Seizures #60 Ref 0 TAB Eve Fishman PA-C Dec 01, 2016 12:56 Ivy Campbell MD Dec 01, 2016 14:36
[2016-12-01] MEDS: ENOXAPARIN SODIUM 40 MG/0.4 ML SYRINGE SQ SCH (14:55)
[2016-12-01 15:10] LABS: AUTOMATED NEUTROPHIL # 3.6 TH/MM3 (1.8-7.7); BASOPHIL % 0.6 % (0.0-2.0); EOSINOPHIL # 0.2 TH/MM3 (0-0.4); EOSINOPHIL % 2.8 % (0.0-4.0); HEMATOCRIT 38.5 % (35.0-46.0); HEMO FLAGS DIFF FINAL; LYMPH % 31.4 % (9.0-44.0); MEAN CELL VOLUME 89.5 FL (80.0-100.0); MEAN CORPUSCULAR HEMOGLOBIN 30.9 PG (27.0-34.0); MEAN CORPUSCULAR HGB CONC 34.5 % (32.0-36.0); NEUT % 56.2 % (16.0-70.0); PLATELET COUNT 231 TH/MM3 (150-450); RED BLOOD COUNT 4.31 MIL/MM3 (4.00-5.30); RED CELL DISTRIBUTION WIDTH 12.9 % (11.6-17.2); WHITE BLOOD COUNT 6.4 TH/MM3 (4.0-11.0)
[2016-12-01 15:30] LABS: BICARBONATE 29.1 MEQ/L (21.0-32.0); POTASSIUM 3.8 MEQ/L (3.5-5.1)
[2016-12-01 15:43] VITALS: BP 111/56; PULSE 74; RESP 16; TEMP 97; O2SAT 94
[2016-12-01] MEDS: ERTAPENEM INJ 1,000 MG in SODIUM CHLORIDE 0.9% INJ 100 ML IV SCH (17:39)
[2016-12-01 18:45] VITALS: PULSE 65
[2016-12-01] MEDS ORDERED: levETIRAcetam 250 MG TAB PO SCH (21:00)
--- NOTE | 2016-12-02 11:36 | HM ---
Date Performed: 11/30/2016 Time Performed: 13:34:00 HOOKUP DATE: 11/30/16 01:34:00 PM Sun ANALYSIS START TIME: 11/30/2016 1:39:00 PM ANALYSIS END TIME: 12/01/2016 1:01:00 PM PATIENT AGE: 66 PATIENT HEIGHT: 67 PATIENT WEIGHT: 187 DRUG LIST PATIENT DIAGNOSIS: TIA VERSUS SEIZURE TEST NARRATIVE: The patient's average heart rate was 74 BPM. Heart rates greater than 120 B PM were noted < 1% of the time. No episodes of bradycardia were noted. No pauses exceeding 2.0 s econds were noted. 63 ventricular ectopics, which represented < 1% of the total beat count, were noted. The highest ventricular ectopic frequency occurred from 04:00 PM to 05:00 PM Sun. During thi s time 6 VE(s) occurred. Ventricular ectopics were observed as 63 isolated beat(s) only. No couplet s or runs were noted. 4 supraventricular ectopics, which represented < 1% of the total beat count , were noted. The highest supraventricular ectopic frequency occurred from 06:00 PM to 07:00 PM Sun. During this time 2 SVE(s) occurred. Multiple episodes of ST depression (defined as -1.0 mm or m ore) were noted in channel 1. The maximum depression of -3.6 mm occurred at 03:14:18 PM Sun. Multi ple episodes of ST depression (defined as -1.0 mm or more) were noted in channel 2. The maximum dep ression of -2.5 mm occurred at 01:55:32 PM Sun. In channel 3, a single episode of ST depression (def ined as -1.0 mm or more) occurred at 03:16:25 PM Sun with a maximum depression of -1.8 mm. No di rolando entries were reported by the patient. TEST INTERPRETATION: The patient is in Sinus rhythm throughout the recording. The average heart rate is 74 bpm with a minimum heart rate of 57 bpm and a peak heart rate of 129 bpm. There are 63 ventricular premature beats with no couplets or runs or v entricular tachycardia. There are only 2 atrial premature beats with no runs of SVT. There are no p auses. There was no diary. CONCLUSIONS: Normal Holter Monitor Study Signed by : Darerl Benz
== END 2016-12-02 01:39 | disposition home or self-care (01) | DRG 690 ==
LOC: NEPE 11:12 → NEDA 13:47 → NEPHCDU 19:34 → OBSVTOIN 11-29 16:03
PROVIDERS: ADMIT Hospitalist; ATTEND Hospitalist
DX: N39.0 Urinary tract infection, site not specified (principal); G45.9 Transient cerebral ischemic attack, unspecified; I10 Essential (primary) hypertension; R47.01 Aphasia; G40.909 Epilepsy, unspecified, not intractable, without status epilepticus; R00.1 Bradycardia, unspecified; M19.90 Unspecified osteoarthritis, unspecified site; E03.9 Hypothyroidism, unspecified; R26.81 Unsteadiness on feet; M50.30 Other cervical disc degeneration, unspecified cervical region; R35.0 Frequency of micturition; R30.0 Dysuria; Z96.653 Presence of artificial knee joint, bilateral; Z96.641 Presence of right artificial hip joint; Z87.891 Personal history of nicotine dependence; M62.838 Other muscle spasm; B96.20 Unspecified Escherichia coli [E. coli] as the cause of diseases classified elsewhere; Z16.12 Extended spectrum beta lactamase (ESBL) resistance; R32 Unspecified urinary incontinence; K59.00 Constipation, unspecified; R11.2 Nausea with vomiting, unspecified; Z86.73 Personal history of transient ischemic attack (TIA), and cerebral infarction without residual deficits; Z23 Encounter for immunization
CPT/HCPCS: 70450; 70553; 71010; 72141; 76937; 80048; 80053; 80061; 81001; 82306; 82550; 82607; 82948; 83036; 84443; 84484; 85025; 85610; 85730; 87040; 87077; 87086; 87186; 90471; 90472; 90686; 90732; 93005; 93225; 93226; 93306; 93880; 95819; 96365; 96374; 96375; A9579; G0008; G0009; G0378; G8987-GO; G8987-GP; G8988-GO; G8988-GP; G8996-GN; G8997-GN; G8998-GN; G9162-GN; G9163-GN; G9164-GN; J0696; J1335; J1642; J1650; J1953; J2060; J7030; Q2038

== ENCOUNTER 2016-12-21 14:43 | Emergency (ER) | payer MEDICARE, BC ==
[~2016-12-21] VITALS: Ht 172.7 cm; Wt 82.0 kg
[~2016-12-21 14:43] MED LIST: Aspirin Chew PO; DICL1CAP4 PO; EPIN1INJ21 IV PUSH; EPIN1INJ21 SQ; GABA100C4 PO; INVA1INJ IV; LEVE250 PO; LEVO112T2 PO; NEUR400C PO; SOLU250I IV PUSH
[2016-12-21 14:47] VITALS: BP 147/74; PULSE 90; RESP 26; O2SAT 95
[2016-12-21 14:51] VITALS: BP 184/86; PULSE 78; RESP 20; TEMP 98.3; O2SAT 97
[2016-12-21] MEDS ORDERED: GABA300C5 PO (14:58)
[2016-12-21] MEDS ORDERED: levETIRAcetam 500 MG TAB PO ONE (15:00)
[2016-12-21] MEDS ORDERED: LORazepam 1 MG TAB PO ONE (15:00)
--- NOTE | 2016-12-21 15:08 | PD ---
HPI Chief Complaint: Neuro Symptoms/ Deficits Time Seen by Provider: 14:47 Travel History International Travel<30 days: No Contact w/Intl Traveler<30days: No Traveled to known affect area: No History of Present Illness HPI The patient was seen and examined in the presence of the nurse. This patient is brought in by with concern of questionable seizure activity. She was recently here admitted a couple weeks ago and had extensive neurologic workup including MRI and EEG and neurology consultation. She had Her Keppra increased to 750 twice a day. reports that she is having left arm jerking. She does talk during the event. No Injury. She denied any complaint earlier today. Severity is moderate. Duration 20 minutes. No alleviating factors PFSH Past Medical History Arthritis: Yes Diminished Hearing: No Hypertension: Yes Seizures: Yes ("GENERALIZED SHAKING WHILE AXOX3.") Tetanus Vaccination: > 5 Years Past Surgical History Other Surgery: Yes (THYROIDECTOMY;HEMORROIDECTOMY) Social History Alcohol Use: Yes (occ) Tobacco Use: No Substance Use: No Allergies-Medications (Allergen,Severity, Reaction): Coded Allergies: *MDRO Multi-Drug Resistant Organism (Verified Adverse Reaction, Unknown, ) ESBL E. coli (urine) - 11/26/16 Reported Meds & Prescriptions Reported Meds & Active Scripts Active Keppra (Levetiracetam) 250 Mg Tab 750 Mg PO BID [Aspirin Chew] 81 MG Chew 81 Mg PO DAILY Epinephrine Inj 1 Mg/Ml Inj 0.3 Mg IV PUSH ONCE PRN Reported Gabapentin 300 Mg Cap 300 Mg PO TID Zorvolex (Diclofenac) 35 Mg Cap 35 Mg PO TID Levothyroxine (Levothyroxine Sodium) 112 Mcg Tab 112 Mcg PO DAILY Review of Systems General / Constitutional: No: Fever Eyes: No: Visual changes HENT: No: Headaches Cardiovascular: No: Chest Pain or Discomfort Respiratory: No: Shortness of Breath Gastrointestinal: No: Abdominal Pain Genitourinary: No: Dysuria Musculoskeletal: No: Pain Skin: No Rash Neurologic: Positive: Seizures, No: Weakness Psychiatric: No: Depression Endocrine: No: Polydipsia Hematologic/Lymphatic: No: Easy Bruising Physical Exam Narrative GENERAL: Well-nourished, well-developed patient in no apparent distress. SKIN: Warm and dry. HEAD: Atraumatic. Normocephalic. EYES: Pupils equal and round. No scleral icterus. No injection or drainage. ENT: No nasal bleeding or discharge. Mucous membranes pink and moist. NECK: Trachea midline. No JVD. CARDIOVASCULAR: Regular rate and rhythm. No murmur appreciated. RESPIRATORY: No accessory muscle use. Clear to auscultation. Breath sounds equal bilaterally. GASTROINTESTINAL: Abdomen soft, non-tender, nondistended. Hepatic and splenic margins not palpable. MUSCULOSKELETAL: No obvious deformities. No clubbing. No cyanosis. No edema. NEUROLOGICAL: Awake but drowsy. No obvious cranial nerve deficits. Poor effort but Motor grossly within normal limits. Understandable but soft-spoken speech. PSYCHIATRIC: Drowsy/lethargic mood and affect; insight and judgment poor. Data Data Last Documented VS Vital Signs Date Time Temp Pulse Resp B/P Pulse Ox O2 Delivery O2 Flow Rate FiO2 12/21/16 14:54 96 Room Air 12/21/16 14:51 98.3 78 20 184/86 Orders Iv Access Insert/Monitor (12/21/16 14:58) Levetiracetam (Keppra) (12/21/16 15:00) Lorazepam (Ativan) (12/21/16 15:00) Complete Blood Count With Diff (12/21/16 15:01) Basic Metabolic Panel (Bmp) (12/21/16 15:01) Labs Laboratory Tests Test 12/21/16 15:05 White Blood Count 7.8 TH/MM3 Red Blood Count 4.60 MIL/MM3 Hemoglobin 14.3 GM/DL Hematocrit 41.7 % Mean Corpuscular Volume 90.8 FL Mean Corpuscular Hemoglobin 31.1 PG Mean Corpuscular Hemoglobin 34.3 % Concent Red Cell Distribution Width 13.0 % Platelet Count 262 TH/MM3 Mean Platelet Volume 8.0 FL Neutrophils (%) (Auto) 51.2 % Lymphocytes (%) (Auto) 39.8 % Monocytes (%) (Auto) 6.7 % Eosinophils (%) (Auto) 1.8 % Basophils (%) (Auto) 0.5 % Neutrophils # (Auto) 4.0 TH/MM3 Lymphocytes # (Auto) 3.1 TH/MM3 Monocytes # (Auto) 0.5 TH/MM3 Eosinophils # (Auto) 0.1 TH/MM3 Basophils # (Auto) 0.0 TH/MM3 CBC Comment DIFF FINAL Differential Comment Sodium Level 141 MEQ/L Potassium Level 4.0 MEQ/L Chloride Level 103 MEQ/L Carbon Dioxide Level 28.5 MEQ/L Anion Gap 10 MEQ/L Blood Urea Nitrogen 15 MG/DL Creatinine 0.98 MG/DL Estimat Glomerular Filtration 57 ML/MIN Rate Random Glucose 121 MG/DL Calcium Level 9.0 MG/DL MDM Medical Decision Making Medical Screen Exam Complete: Yes Emergency Medical Condition: Yes Medical Record Reviewed: Yes Differential Diagnosis Postictal state, pseudoseizure, seizure Narrative Course I have reviewed the patient's electronic medical record. Reviewed neurology consultation as well as brain MRI and EEG results from a couple weeks ago IV placed CBC is normal Metabolic profile is normal I gave her dose of oral Ativan and oral Keppra Not having any seizure activity now. She seems drowsy, possibly postictal. However during the event she was talking and following commands and raise up the concern for pseudoseizure. Patient was seemingly very weak during exam and when I told her to get a better effort her strength became normal instantly. I'm going to observe her for while and do multiple rechecks On recheck at 4:20 PM she is feeling fine. No further neurologic events. She is awake and alert and oriented and back to normal baseline I'm recommending that she increase her Keppra to 1000 mg twice a day. Unclear if this represents true seizure activity She does have a neurologist back home and I recommended they go see them as soon as possible Recommended they call tomorrow for follow-up appointment with her neurologist Diagnosis Primary Impression: Breakthrough seizure Additional Instructions: Increase Keppra to 1000 mg twice a day Follow-up with your neurologist Med/Other Pt SpecificInfo: Other Disposition: 01 DISCHARGE HOME Condition: Stable Tucker Sanchez MD Dec 21, 2016 15:08
[2016-12-21 15:22] LABS: BASOPHIL % 0.5 % (0.0-2.0); EOSINOPHIL # 0.1 TH/MM3 (0-0.4); EOSINOPHIL % 1.8 % (0.0-4.0); HEMATOCRIT 41.7 % (35.0-46.0); HEMO FLAGS DIFF FINAL; LYMPH % 39.8 % (9.0-44.0); LYMPHOCYTE # 3.1 TH/MM3 (1.0-4.8); MEAN CELL VOLUME 90.8 FL (80.0-100.0); MEAN CORPUSCULAR HEMOGLOBIN 31.1 PG (27.0-34.0); MEAN CORPUSCULAR HGB CONC 34.3 % (32.0-36.0); MONO % 6.7 % (0.0-8.0); NEUT % 51.2 % (16.0-70.0); PLATELET COUNT 262 TH/MM3 (150-450); WHITE BLOOD COUNT 7.8 TH/MM3 (4.0-11.0)
[2016-12-21 15:43] LABS: BICARBONATE 28.5 MEQ/L (21.0-32.0)
[2016-12-21 16:31] VITALS: BP 132/78
== END 2016-12-21 16:30 | disposition home or self-care (01) ==
LOC: NEPE 14:43
DX: R56.9 Unspecified convulsions (principal); I10 Essential (primary) hypertension; Z79.899 Other long term (current) drug therapy
CPT/HCPCS: 80048; 85025; 99284